=== PATIENT | male | born 1970 | race Caucasian/White ===

== ENCOUNTER 2022-12-02 13:25 | Observation (INO) | payer OTHER ==
[2022-12-02] MEDS ORDERED: DUONEB 0.5-3 MG/3 ml Neb IH ONE ×2 (13:43→14:28)
[2022-12-02 14:13] LABS: Hematocrit 28.4 % (42-50); Hemoglobin 8.9 g/dL (12.5-18.0); Mean Cell Volume 94.4 fL (78-100); Mean Corpuscular Hemoglobin 29.6 pg (26-32); Mean Corpuscular Hgb Concent. 31.3 g/dL (32-36); Mean Platelet Volume 9.8 fL (7.5-11.0); Platelet Count 241 x10^3/uL (150-450); Red Blood Count 3.01 x10^6/uL (4.1-5.6); Red Cell Distribution Width 17.7 % (11.5-14.0); White Blood Count 7.8 x10^3/uL (4.0-10.5)
--- NOTE | 2022-12-02 14:22 | XRAY ---
Indication: Cough and short of breath. Post Covid 19. Comparison: None Portable chest inflated and clear. Heart not enlarged. Bony thorax intact with minimal degenerative changes.
[2022-12-02 14:26] LABS: ALBUMIN 2.9 g/dL (3.5-5.0); ALKALINE PHOSPHATASE 119 U/L (38-126); ANION GAP 12.3 MEQ/L (5-15); BLOOD UREA NITROGEN 20 mg/dL (9-20); CHLORIDE 94 mmol/L (98-107); Calcium 7.9 mg/dL (8.4-10.2); Carbon Dioxide 25 mmol/L (22-30); EST GLOMERULAR FILTRATION RATE > 60.0 ML/MIN; Glucose 436 mg/dL (74-106); LIPASE 146 U/L (23-300); Potassium 4.6 mmol/L (3.5-5.1); SGOT/AST 20 U/L (17-59); SGPT/ALT 20 U/L (0-50); SODIUM 126 mmol/L (137-145); Total Protein 4.9 g/dL (6.3-8.2)
[2022-12-02] MEDS ORDERED: Sodium Chloride 0.9% 1000 ML 1,000 ML IV STA (14:28)
[2022-12-02 14:30] LABS: Appearance CLEAR (CLEAR); Bilirubin NEGATIVE (NEGATIVE); Dipstick done @ ? MAIN LAB; Glucose >=1000 mg/dL (NEGATIVE); Ketones NEGATIVE (NEGATIVE); Nitrite NEGATIVE (NEGATIVE); Protein,Urine Dip NEGATIVE (Negative); RBC NEGATIVE Ery/ul (0-5); Urobilinogen 0.2 mg/dL (0-1)
[2022-12-02 14:31] LABS: Urine Cultured Indicated? NO
[2022-12-02] MEDS ORDERED: Sodium Chloride 0.9% 1000 ML 1,000 ML ONE (14:34)
[2022-12-02] MEDS ORDERED: HUMULIN R IV ONE (14:40)
--- NOTE | 2022-12-02 14:57 | ERPHSYRPT ---
- History of Present Illness Time Seen by Provider: 12/02/22 13:42 Source: patient Exam Limitations: no limitations Patient Subjective Stated Complaint: Patient c/o fatigue, pain, cough, weakness. Patient is requesting to be placed in a mcfp/rehab center for therapy. Triage Nursing Assessment: Patient brought into the ED by ambulance. He is alert and oriented. SOB noted upon arrival, wearing 02 @ 3L per N/C. Patient has been utilizing oxygen at 3L for approx the past month at home. Patient has a forceful, productive cough with yellow sputum. Patient states he was diagnosed with COVID at [facility] approx 5 days ago. ABDULAZIZ PEREIRA. Physician History: 52-year-old male with history of CLL currently off of chemotherapy because of not doing well in general. Did have COVID-19 early last week and was treated wi PaxilOVOD and steroids at [place] has chronic productive cough for 6 months, chronic respiratory failure on 3 L oxygen presented with worsening cough with generalized weakness fatigue and tiredness. Patient reports he has no energy to do his routine daily house chores. No fever or chills reported. Patient wants to be placed in a mcfp to get some rehab. Patient has a blood sugar in upper 400s when EMS picked him up. Generalized chest soreness. Timing/Duration: week(s) (1), gradual onset, worse Cough Quality/Degree: moderate, productive cough, sputum Possible Cause: illness exposure Modifying Factors: Worsens With: coughing, exertion Associated Symptoms: chest pain/soreness, cough, muscle aches, nasal congestion, shortness of breath, sore throat, wheezing Allergies/Adverse Reactions: No Known Drug Allergies Allergy (Verified 12/02/22 13:34) Home Medications: Albuterol Sulfate [Albuterol Sulfate Hfa] 2 puff PO Q6H PRN PRN 12/02/22 [History] Albuterol/Ipratropium 3ml Neb* [DUONEB 0.5-3 MG/3 ml Neb] 1 vial NEB QID 12/02/22 [History] Budesonide/Formoterol Fumarate [Budesonide-Formoterol 80-4.5] 2 puff PO BID 12/02/22 [History] Diazepam [Valium] 1 tab PO BID 12/02/22 [History] Guaifenesin/Dextromethorphan [Guaifenesin-Dm 100-10 mg/5 ml] 5 ml PO QID 12/02/22 [History] dexAMETHasone [Dexamethasone] 6 mg PO BID 12/02/22 [History] Hx Tetanus, Diphtheria Vaccination/Date Given: Yes Hx Influenza Vaccination/Date Given: No Hx Pneumococcal Vaccination/Date Given: No Immunizations Up to Date: Yes Travel Risk - International Travel Have you traveled outside of the country in past 3 weeks: No - Coronavirus Screening Are you exhibiting any of the following symptoms?: Yes Symptoms: Fever, Cough: New Onset, Shortness of Breath, Headaches/Body Aches/Fatigue Close contact with a COVID-19 positive Pt in past 14-21 Days: No - Vaccine Status Have you recieved a Covid-19 vaccination: No - Review of Systems Constitutional: Chills, Fatigue, Weakness Eyes: No Symptoms Ears, Nose, & Throat: Nose Congestion, Throat Pain Respiratory: Cough, Dyspnea, Dyspnea on Exertion (WEINSTEIN), Wheezing Cardiac: No Symptoms Abdominal/Gastrointestinal: No Symptoms Genitourinary Symptoms: No Symptoms Musculoskeletal: Myalgias Skin: No Symptoms Neurological: No Symptoms Psychological: Anxiety, Depression Endocrine: No Symptoms Hematologic/Lymphatic: Anemia Immunological/Allergic: No Symptoms - Past Medical History Pertinent Past Medical History: Yes Respiratory History: Other GI Medical History: Hernia Psycho-Social History: Anxiety Other Medical History: CLL, COVID in Oct 2022, Stage 4 Lymphoma - Past Surgical History Past Surgical History: Yes Gastrointestinal: Hernia Repair Musculoskeletal: Other Other Surgical History: carpal tunnel surgery, right elbow - Social History Smoking Status: Former smoker Exposure to second hand smoke: No Drug Use: none Patient Lives Alone: No (Mom and sister) - Nursing Vital Signs Nursing Vital Signs: Initial Vital Signs Temperature 98.2 F 12/02/22 13:35 Pulse Rate 104 H 12/02/22 13:35 Respiratory Rate 26 H 12/02/22 13:35 Blood Pressure 142/98 12/02/22 13:35 O2 Sat by Pulse Oximetry 95 12/02/22 13:35 Pain Scale Pain Intensity 5 - Physical Exam General Appearance: no apparent distress, alert Eye Exam: PERRL/EOMI, eyes nml inspection Ears, Nose, Throat Exam: TMs normal, pharyngeal erythema Neck Exam: normal inspection, non-tender, supple, full range of motion Respiratory Exam: normal breath sounds, rhonchi, wheezing Cardiovascular Exam: regular rate/rhythm, normal heart sounds Gastrointestinal/Abdomen Exam: soft, normal bowel sounds, No tenderness Back Exam: normal inspection Extremity Exam: normal inspection, normal range of motion Neurologic Exam: alert, oriented x 3, cooperative, die forger II-XII nml as tested Skin Exam: normal color SpO2 Interpretation: O2 applied SpO2: 95 O2 Delivery: Nasal Cannula (3 L) - Course EKG Interpreted by Me: RATE (97), Sinus Rhythm, NORMAL AXIS, NORMAL INTERVALS, NORMAL QRS Ordered Tests: Medication Summary Generic Name Dose Route Start Last Admin Trade Name Freq PRN Reason Stop Dose Admin Acetaminophen 650 mg 12/02/22 16:58 Acetaminophen 325 Mg Tablet PO 01/01/23 16:57 Q4H PRN PRN PAIN AND/OR FEVER Hydrocodone Bitart/Acetaminophen 1 tab 12/02/22 19:59 12/05/22 08:08 Hydrocodone/Apap 5/325 1 Tab Tablet PO 12/07/22 19:58 1 tab Q4H PRN PRN Administration PAIN Albuterol Sulfate 2.5 mg 12/02/22 19:00 12/05/22 07:52 Albuterol Sulfate 2.5 Mg/3 Ml Neb 01/01/23 18:59 2.5 mg Q6HRT JONY Administration Albuterol Sulfate 2 puff 12/03/22 14:47 Albuterol Common Canister Inhaler 01/02/23 14:46 Q6H PRN PRN SHORTNESS OF BREATH Dexamethasone 6 mg 12/02/22 22:00 12/04/22 20:43 Dexamethasone 4 Mg Tablet PO 01/01/23 21:59 6 mg BID JONY Administration Diazepam 2.5 mg 12/03/22 22:00 12/04/22 20:44 Diazepam 5 Mg Tablet PO 01/01/23 21:59 2.5 mg BID JONY Administration Diphenhydramine/Hydrocorti/Nystatin 10 ml 12/03/22 17:00 12/04/22 20:45 Nystatin/Tcn/Pred/Diphenhydramin 240 Ml Bottle PO 01/02/23 16:59 10 ml QID JONY Administration Escitalopram Oxalate 10 mg 12/03/22 14:00 12/04/22 09:49 Escitalopram Oxalate 10 Mg Tablet PO 01/02/23 13:59 10 mg QAM JONY Administration Glimepiride 2 mg 12/04/22 14:00 12/04/22 13:54 Glimepiride 2 Mg Tablet PO 01/03/23 13:59 2 mg DAILY JONY Administration Guaifenesin/Dextromethorphan 5 ml 12/02/22 22:00 12/04/22 20:45 Guaifenesin/D-Methorphan Hb 118 Ml Syrup PO 01/01/23 21:59 5 ml QID JONY Administration Sodium Chloride 1,000 mls @ 100 mls/hr 12/02/22 16:58 12/04/22 21:51 Sodium Chloride 0.9% 1000 Ml IV 01/01/23 16:57 100 mls/hr .Q10H JONY Administration Levofloxacin/Dextrose 500 mg in 100 mls @ 100 mls/hr 12/03/22 10:00 12/04/22 09:49 Levofloxacin 500mg/100ml D5w IV 01/02/23 09:59 100 mls/hr Q24H10 JONY Administration Insulin Human Lispro 0 unit 12/02/22 16:58 12/05/22 08:08 Insulin Lispro 1 Unit SQ 01/01/23 16:57 3 unit UD PRN Administration HYPERGLYCEMIA Metformin HCl 500 mg 12/04/22 14:00 12/04/22 13:54 Metformin Hcl 500 Mg Tablet PO 01/03/23 13:59 500 mg DAILY JONY Administration Ondansetron HCl 4 mg 12/02/22 16:58 12/04/22 20:43 Ondansetron Hcl 4 Mg/2 Ml Vial IV 01/01/23 16:57 4 mg Q6H PRN PRN Administration NAUSEA/VOMITING Pantoprazole Sodium 40 mg 12/03/22 10:00 12/04/22 09:34 Pantoprazole 40 Mg Vial IV 01/02/23 09:59 40 mg Q24H10 JONY Administration Fluticasone/Salmeterol 2 puff 12/03/22 07:00 12/04/22 18:24 Fluticasone/Salmeterol 115/21 - 120 Puff Common Canister IH 01/02/23 06:59 2 puff BIDRT JONY Administration Discontinued Medications Generic Name Dose Route Start Last Admin Trade Name Freq PRN Reason Stop Dose Admin Albuterol/Ipratropium 3 ml 12/02/22 13:43 12/02/22 15:00 Ipratropium/Albuterol Sulfate 3 Ml Ampul.Neb 12/02/22 13:44 3 ml STAT ONE Administration Albuterol/Ipratropium Confirm 12/02/22 14:28 Ipratropium/Albuterol Sulfate 3 Ml Ampul.Neb Administered 12/02/22 14:29 Dose 3 ml IH .STK-MED ONE Albuterol/Ipratropium 3 ml 12/02/22 19:00 Ipratropium/Albuterol Sulfate 3 Ml Ampul.Neb 01/01/23 18:59 Q6HRT JONY Diazepam Confirm 12/02/22 20:17 Diazepam 5 Mg Tablet Administered 12/02/22 20:18 Dose 5 mg .ROUTE .STK-MED ONE Diazepam 2 mg 12/02/22 22:00 12/03/22 08:18 Diazepam 5 Mg Tablet PO 01/01/23 21:59 2 mg BID JONY Administration Glimepiride 2 mg 12/05/22 10:00 Glimepiride 2 Mg Tablet PO 01/04/23 09:59 BREAKFAST JONY Sodium Chloride 1,000 mls @ 999 mls/hr 12/02/22 14:28 12/02/22 15:51 Sodium Chloride 0.9% 1000 Ml IV 12/02/22 15:28 Infused .Q1H1M STA Infusion Sodium Chloride Confirm 12/02/22 14:34 Sodium Chloride 0.9% 1000 Ml Administered 12/02/22 14:35 Dose 1,000 mls @ ud .ROUTE .STK-MED ONE Levofloxacin/Dextrose 750 mg in 150 mls @ 100 mls/hr 12/02/22 15:30 12/02/22 15:54 Levofloxacin 750mg/150ml D5w IV 12/02/22 16:59 100 mls/hr STAT STA 100 mls/hr Administration Levofloxacin/Dextrose Confirm 12/02/22 15:53 Levofloxacin 750mg/150ml D5w Administered 12/02/22 15:54 Dose 750 mg in 150 mls @ ud IV .STK-MED ONE Insulin Human Regular 8 unit 12/02/22 14:40 12/02/22 15:23 Insulin Regular, Human 1 Unit IV 01/02/23 14:41 8 unit STAT ONE Administration Insulin Human Regular Confirm 12/02/22 15:22 Insulin Regular, Human 1 Unit Administered 12/02/22 15:23 Dose 8 unit .ROUTE .STK-MED ONE Metformin HCl 500 mg 12/05/22 10:00 Metformin Hcl 500 Mg Tablet PO 12/05/22 10:01 ONCE ONE Non-Formulary Medication 1 each 12/03/22 13:44 12/03/22 15:15 Pharmacy Dosing Request 12/03/22 13:45 1 each STAT ONE Administration Lab/Rad Data: Laboratory Result Diagrams 12/02/22 13:55 12/02/22 13:55 Laboratory Results 12/02/22 12/02/22 12/02/22 Range/Units 16:38 16:23 15:53 WBC (4.0-10.5) x10^3/uL RBC (4.1-5.6) x10^6/uL Hgb (12.5-18.0) g/dL Hct (42-50) % MCV (78-100) fL MCH (26-32) pg MCHC (32-36) g/dL RDW (11.5-14.0) % Plt Count (150-450) x10^3/uL MPV (7.5-11.0) fL Segmented Neutrophils (36.-66.) % Lymphocytes (Manual) (24-44) % Monocytes (Manual) (0.0-12.0) % Toxic Granulation Platelet Estimate (NORMAL) RBC Morphology Polychromasia Anisocytosis Microcytosis Sodium (137-145) mmol/L Potassium (3.5-5.1) mmol/L Chloride (98-107) mmol/L Carbon Dioxide (22-30) mmol/L Anion Gap (5-15) MEQ/L BUN (9-20) mg/dL Creatinine (0.66-1.25) mg/dL Estimated GFR ML/MIN Glucose (74-106) mg/dL POC Glucometer 275 H (74 to 106) mg/dL Lactic Acid 2.1 H (0.4-2.0) Calcium (8.4-10.2) mg/dL Magnesium (1.6-2.3) mg/dL Total Bilirubin (0.2-1.3) mg/dL AST (17-59) U/L ALT (0-50) U/L Alkaline Phosphatase (38-126) U/L Troponin I (0.000-0.034) ng/mL NT-Pro-B Natriuret Pep (0-900) pg/mL Serum Total Protein (6.3-8.2) g/dL Albumin (3.5-5.0) g/dL Lipase (23-300) U/L Urinalys Dipstick Clnc Urine Color (YELLOW) Urine Appearance (CLEAR) Urine pH (5-6) Ur Specific [place] (1.005-1.025) POC Urine Protein Conf (Negative) Urine Ketones (NEGATIVE) Urine Nitrite (NEGATIVE) Urine Bilirubin (NEGATIVE) Urine Urobilinogen (0-1) mg/dL Urine Leukocytes (NEGATIVE) Urine WBC (Auto) (0-5) /HPF Urine RBC (Auto) (0-2) /HPF U Epithel Cells (Auto) (FEW) /HPF Urine Bacteria (Auto) (NEGATIVE) /HPF Urine RBC (0-5) [place] Ur Culture Indicated? Urine Glucose (NEGATIVE) mg/dL SARS-CoV-2 Ag (Rapid) NEGATIVE (NEGATIVE) 12/02/22 12/02/22 12/02/22 Range/Units 15:17 14:13 13:55 WBC (4.0-10.5) x10^3/uL RBC (4.1-5.6) x10^6/uL Hgb (12.5-18.0) g/dL Hct (42-50) % MCV (78-100) fL MCH (26-32) pg MCHC (32-36) g/dL RDW (11.5-14.0) % Plt Count (150-450) x10^3/uL MPV (7.5-11.0) fL Segmented Neutrophils (36.-66.) % Lymphocytes (Manual) (24-44) % Monocytes (Manual) (0.0-12.0) % Toxic Granulation Platelet Estimate (NORMAL) RBC Morphology Polychromasia Anisocytosis Microcytosis Sodium (137-145) mmol/L Potassium (3.5-5.1) mmol/L Chloride (98-107) mmol/L Carbon Dioxide (22-30) mmol/L Anion Gap (5-15) MEQ/L BUN (9-20) mg/dL Creatinine (0.66-1.25) mg/dL Estimated GFR ML/MIN Glucose (74-106) mg/dL POC Glucometer 378 H (74 to 106) mg/dL Lactic Acid (0.4-2.0) Calcium (8.4-10.2) mg/dL Magnesium 2.1 (1.6-2.3) mg/dL Total Bilirubin (0.2-1.3) mg/dL AST (17-59) U/L ALT (0-50) U/L Alkaline Phosphatase (38-126) U/L Troponin I (0.000-0.034) ng/mL NT-Pro-B Natriuret Pep 154 (0-900) pg/mL Serum Total Protein (6.3-8.2) g/dL Albumin (3.5-5.0) g/dL Lipase (23-300) U/L Urinalys Dipstick Clnc MAIN LAB Urine Color YELLOW (YELLOW) Urine Appearance CLEAR (CLEAR) Urine pH 6.0 (5-6) Ur Specific [place] 1.010 (1.005-1.025) POC Urine Protein Conf NEGATIVE (Negative) Urine Ketones NEGATIVE (NEGATIVE) Urine Nitrite NEGATIVE (NEGATIVE) Urine Bilirubin NEGATIVE (NEGATIVE) Urine Urobilinogen 0.2 (0-1) mg/dL Urine Leukocytes NEGATIVE (NEGATIVE) Urine WBC (Auto) NONE (0-5) /HPF Urine RBC (Auto) NONE (0-2) /HPF U Epithel Cells (Auto) NONE (FEW) /HPF Urine Bacteria (Auto) NONE (NEGATIVE) /HPF Urine RBC NEGATIVE (0-5) [place] Ur Culture Indicated? NO Urine Glucose >=1000 A (NEGATIVE) mg/dL SARS-CoV-2 Ag (Rapid) (NEGATIVE) 12/02/22 12/02/22 12/02/22 Range/Units 13:55 13:55 13:55 WBC 7.8 (4.0-10.5) x10^3/uL RBC 3.01 L (4.1-5.6) x10^6/uL Hgb 8.9 L (12.5-18.0) g/dL Hct 28.4 L (42-50) % MCV 94.4 (78-100) fL MCH 29.6 (26-32) pg MCHC 31.3 L (32-36) g/dL RDW 17.7 H (11.5-14.0) % Plt Count 241 (150-450) x10^3/uL MPV 9.8 (7.5-11.0) fL Segmented Neutrophils 37 (36.-66.) % Lymphocytes (Manual) 62 H (24-44) % Monocytes (Manual) 1 (0.0-12.0) % Toxic Granulation 1+ Platelet Estimate NORMAL (NORMAL) RBC Morphology ABNORMAL Polychromasia RARE Anisocytosis 1+ Microcytosis 1+ Sodium 126 L (137-145) mmol/L Potassium 4.6 (3.5-5.1) mmol/L Chloride 94 L (98-107) mmol/L Carbon Dioxide 25 (22-30) mmol/L Anion Gap 12.3 (5-15) MEQ/L BUN 20 (9-20) mg/dL Creatinine 0.60 L (0.66-1.25) mg/dL Estimated GFR > 60.0 ML/MIN Glucose 436 H (74-106) mg/dL POC Glucometer (74 to 106) mg/dL Lactic Acid (0.4-2.0) Calcium 7.9 L (8.4-10.2) mg/dL Magnesium (1.6-2.3) mg/dL Total Bilirubin 0.40 (0.2-1.3) mg/dL AST 20 (17-59) U/L ALT 20 (0-50) U/L Alkaline Phosphatase 119 (38-126) U/L Troponin I < 0.012 (0.000-0.034) ng/mL NT-Pro-B Natriuret Pep (0-900) pg/mL Serum Total Protein 4.9 L (6.3-8.2) g/dL Albumin 2.9 L (3.5-5.0) g/dL Lipase 146 (23-300) U/L Urinalys Dipstick Clnc Urine Color (YELLOW) Urine Appearance (CLEAR) Urine pH (5-6) Ur Specific [place] (1.005-1.025) POC Urine Protein Conf (Negative) Urine Ketones (NEGATIVE) Urine Nitrite (NEGATIVE) Urine Bilirubin (NEGATIVE) Urine Urobilinogen (0-1) mg/dL Urine Leukocytes (NEGATIVE) Urine WBC (Auto) (0-5) /HPF Urine RBC (Auto) (0-2) /HPF U Epithel Cells (Auto) (FEW) /HPF Urine Bacteria (Auto) (NEGATIVE) /HPF Urine RBC (0-5) [place] Ur Culture Indicated? Urine Glucose (NEGATIVE) mg/dL SARS-CoV-2 Ag (Rapid) (NEGATIVE) 12/02/22 Range/Units 13:42 WBC (4.0-10.5) x10^3/uL RBC (4.1-5.6) x10^6/uL Hgb (12.5-18.0) g/dL Hct (42-50) % MCV (78-100) fL MCH (26-32) pg MCHC (32-36) g/dL RDW (11.5-14.0) % Plt Count (150-450) x10^3/uL MPV (7.5-11.0) fL Segmented Neutrophils (36.-66.) % Lymphocytes (Manual) (24-44) % Monocytes (Manual) (0.0-12.0) % Toxic Granulation Platelet Estimate (NORMAL) RBC Morphology Polychromasia Anisocytosis Microcytosis Sodium (137-145) mmol/L Potassium (3.5-5.1) mmol/L Chloride (98-107) mmol/L Carbon Dioxide (22-30) mmol/L Anion Gap (5-15) MEQ/L BUN (9-20) mg/dL Creatinine (0.66-1.25) mg/dL Estimated GFR ML/MIN Glucose (74-106) mg/dL POC Glucometer (74 to 106) mg/dL Lactic Acid 4.0 H (0.4-2.0) Calcium (8.4-10.2) mg/dL Magnesium (1.6-2.3) mg/dL Total Bilirubin (0.2-1.3) mg/dL AST (17-59) U/L ALT (0-50) U/L Alkaline Phosphatase (38-126) U/L Troponin I (0.000-0.034) ng/mL NT-Pro-B Natriuret Pep (0-900) pg/mL Serum Total Protein (6.3-8.2) g/dL Albumin (3.5-5.0) g/dL Lipase (23-300) U/L Urinalys Dipstick Clnc Urine Color (YELLOW) Urine Appearance (CLEAR) Urine pH (5-6) Ur Specific [place] (1.005-1.025) POC Urine Protein Conf (Negative) Urine Ketones (NEGATIVE) Urine Nitrite (NEGATIVE) Urine Bilirubin (NEGATIVE) Urine Urobilinogen (0-1) mg/dL Urine Leukocytes (NEGATIVE) Urine WBC (Auto) (0-5) /HPF Urine RBC (Auto) (0-2) /HPF U Epithel Cells (Auto) (FEW) /HPF Urine Bacteria (Auto) (NEGATIVE) /HPF Urine RBC (0-5) [place] Ur Culture Indicated? Urine Glucose (NEGATIVE) mg/dL SARS-CoV-2 Ag (Rapid) (NEGATIVE) - Progress Progress: improved Air Movement: good Progress Note: 12/02/22 15:36 52-year-old with CLL currently off of his chemotherapy because of recent sickness and also had recent COVID-19 finished course of oral antiviral is evaluated for worsening cough and generalized weakness. Patient has shortness of breath. His baseline unknowns on 3 L oxygen with sats around mid to upper 90s and not in any distress. Patient is afebrile. Given breathing treatment, chest x-ray negative for any acute cardiopulmonary findings. Has normal white count, has hemoglobin of 8.9 which according to patient has chronic anemia and does have history of transfusions in the past. Has normal troponin and EKG no acute ischemic changes. Chemistry shows blood sugar of 436 with normal bicarb. Patient has no history of diabetes mellitus and is on steroids and I believe this is secondary to steroid induced and could be new onset diabetes mellitus. I will order A1c for further evaluation. He is given 8 units of IV insulin after fluid bolus. Patient has a lactate of 4.0 without any obvious focus of infection and sodium of 126 which seems to be pseudohyponatremia because of elevated glucose. He is given a dose of Levaquin because patient has CLL. Discussed with patient about transfer to [facility] and he does not want to go there at all. According to patient his transformation specialist is not plan keli on starting him on any chemotherapy back until he gets physically better. He wants to be admitted in here. I have discussed with Dr. Lee, reviewed history, work-up and patient is being admitted. Blood cultures are obtained and she will follow the results. Blood Culture(s) Obtained: Yes Antibiotics given: Yes Discussed with Dr.: Aldo Will see patient in: hospital (observation) Counseled pt/family regarding: lab results, diagnosis, need for follow-up, rad results - Departure Departure Disposition: Observation Clinical Impression: Generalized weakness, Post-COVID chronic fatigue, Hyperglycemia, Lactic acidosis, CLL (chronic lymphocytic leukemia) Condition: Stable Critical Care Time: No
[2022-12-02 14:59] LABS: MAGNESIUM 2.1 mg/dL (1.6-2.3)
[2022-12-02] MEDS ORDERED: HUMULIN R ONE (15:22)
[2022-12-02] MEDS ORDERED: LEVOFLOXACIN 750MG/150ML D5W 750 MG/150 ML BAG IV STA (15:30)
[2022-12-02 15:43] LABS: Lymphocytes 62 % (24-44); Monocyte 1 % (0.0-12.0); Neutrophils 37 % (36.-66.); Total Cells Counted 100
[2022-12-02 15:44] LABS: ANISOCYTOSIS 1+; Microcytosis 1+; Platelet Estimate NORMAL (NORMAL); Polychromasia RARE; Toxic Granulation 1+
[2022-12-02] MEDS ORDERED: LEVOFLOXACIN 750MG/150ML D5W 750 MG/150 ML BAG IV ONE (15:53)
[2022-12-02] MEDS ORDERED: Zofran 4 MG/2 ML VIAL IV PRN (16:58)
[2022-12-02] MEDS ORDERED: TYLENOL 325 MG PO PRN (16:58)
[2022-12-02] MEDS: Sodium Chloride 0.9% 1000 ML 1,000 ML IV SCH (17:52)
[2022-12-02] MEDS: PROVENTIL 2.5 MG/3 ML NEB IH SCH (18:32)
[2022-12-02] MEDS ORDERED: DUONEB 0.5-3 MG/3 ml Neb IH SCH (19:00)
[2022-12-02] MEDS ORDERED: Valium 5 MG ONE (20:17)
[2022-12-02] MEDS: Robitussin-Dm Syrup PO SCH (20:48)
[2022-12-02] MEDS: Valium 5 MG PO SCH (20:48)
[2022-12-02] MEDS: Decadron 4 MG PO SCH (20:49)
[2022-12-02] MEDS: NORCO 5/325 MG PO PRN (20:49)
[2022-12-02] MEDS: HUMALOG SQ PRN (21:42)
[2022-12-03] MEDS: PROVENTIL 2.5 MG/3 ML NEB IH SCH ×4 (00:16→19:10)
[2022-12-03] MEDS: NORCO 5/325 MG PO PRN ×5 (02:40→21:14)
[2022-12-03] MEDS: Sodium Chloride 0.9% 1000 ML 1,000 ML IV SCH ×3 (03:24→23:52)
[2022-12-03 05:08] LABS: Hematocrit 29.7 % (42-50); Hemoglobin 9.1 g/dL (12.5-18.0); Mean Cell Volume 94.3 fL (78-100); Mean Corpuscular Hemoglobin 28.9 pg (26-32); Mean Corpuscular Hgb Concent. 30.6 g/dL (32-36); Mean Platelet Volume 9.6 fL (7.5-11.0); Platelet Count 214 x10^3/uL (150-450); Red Blood Count 3.15 x10^6/uL (4.1-5.6); Red Cell Distribution Width 17.7 % (11.5-14.0); White Blood Count 6.4 x10^3/uL (4.0-10.5)
[2022-12-03 05:38] LABS: ALKALINE PHOSPHATASE 103 U/L (38-126); ANION GAP 7.6 MEQ/L (5-15); BLOOD UREA NITROGEN 18 mg/dL (9-20); CHLORIDE 95 mmol/L (98-107); Calcium 8.2 mg/dL (8.4-10.2); Carbon Dioxide 30 mmol/L (22-30); Creatinine 1 0.62 mg/dL (0.66-1.25); EST GLOMERULAR FILTRATION RATE > 60.0 ML/MIN; Glucose 342 mg/dL (74-106); Potassium 4.8 mmol/L (3.5-5.1); SGOT/AST 18 U/L (17-59); SGPT/ALT 18 U/L (0-50); SODIUM 128 mmol/L (137-145); Total Protein 5.1 g/dL (6.3-8.2)
[2022-12-03 07:46] LABS: Lymphocytes 52 % (24-44); Monocyte 6 % (0.0-12.0); Neutrophils 42 % (36.-66.); Total Cells Counted 100
[2022-12-03 07:47] LABS: Platelet Estimate NORMAL (NORMAL)
[2022-12-03] MEDS: Advair Hfa 115/21 Common canister IH SCH ×2 (07:48→19:10)
[2022-12-03] MEDS: Decadron 4 MG PO SCH ×2 (08:17→21:13)
[2022-12-03] MEDS: HUMALOG SQ PRN ×4 (08:17→22:00)
[2022-12-03] MEDS: PROTONIX 40 MG IV IV SCH (08:17)
[2022-12-03] MEDS: Valium 5 MG PO SCH ×2 (08:18→21:13)
[2022-12-03] MEDS: Robitussin-Dm Syrup PO SCH ×4 (08:23→21:14)
[2022-12-03] MEDS: Levofloxacin 500MG/100ML D5W 500 MG/100 ML BAG IV SCH (08:23)
--- NOTE | 2022-12-03 12:54 | PCM.HP ---
History of Present Illness - Chief Complaint Chief Complaint: Post COVID generalized weakness History of Present Illness: n History: Mr Colmenares is a 52-year-old male with history of CLL currently off of chemotherapy because of not doing well in general. Did have COVID-19 early last week and was treated with Paklovid and steroids at [place] has chronic productive cough for 6 months, chronic respiratory failure on 3 L oxygen presented with worsening cough with generalized weakness fatigue and tiredness. Patient reports he has no energy to do his routine daily house chores. No fever or chills reported. Patient wants to be placed in a alf to get some rehab. Patient has a blood sugar in upper 400s when EMS picked him up. Generalized chest soreness. ER evaluation - CXR negative for any acute cardiopulmonary findings. normal white count, hemoglobin of 8.9 which according to patient has chronic anemia and does have history of transfusions in the past. Has normal troponin and EKG no acute ischemic changes. Hyperglycemia - blood sugar of 436 with normal bicarb. Patient has no history of diabetes mellitus and is on steroids / steroid induced and could be new onset diabetes mellitus. A1c pending . 8 units of IV insulin after fluid bolus. Patient has a lactate of 4.0 without any obvious focus of infection and sodium of 126 which seems to be pseudohyponatremia because of elevated glucose. He is given a dose of Levaquin because patient has CLL. 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 Blood cultures are obtained In ER prior to starting Levaquin. Patient is admitted to [facility]. B - Review of Systems Constitutional: Fever, Chills, Fatigue, Malaise, Weakness Eyes: No Symptoms Ears, Nose, & Throat: Nose Congestion, Sinus Drainage, Throat Pain Respiratory: Cough, Wheezing Cardiac: No Symptoms Abdominal/Gastrointestinal: No Symptoms Genitourinary Symptoms: No Symptoms Musculoskeletal: Arthralgias Skin: No Symptoms Neurological: No Symptoms Psychological: Anxiety Endocrine: Polyuria Hematologic/Lymphatic: No Symptoms Medications & Allergies Home Medications: Home Medication List Albuterol Sulfate [Albuterol Sulfate Hfa] 2 puff PO Q6H PRN PRN 12/02/22 [Hist ory Confirmed 12/02/22] Albuterol/Ipratropium 3ml Neb* [DUONEB 0.5-3 MG/3 ml Neb] 1 vial NEB QID 12/02/22 [History Confirmed 12/02/22] Budesonide/Formoterol Fumarate [Budesonide-Formoterol 80-4.5] 2 puff PO BID 12/02/22 [History Confirmed 12/02/22] Diazepam [Valium] 1 tab PO BID 12/02/22 [History Confirmed 12/02/22] dexAMETHasone [Dexamethasone] 6 mg PO BID 12/02/22 [History Confirmed 12/02/22] Escitalopram Oxalate [Lexapro] 10 mg PO QAM #30 tablet 12/05/22 [Rx] Fluconazole 100 mg [Diflucan 100 MG] 200 mg PO DAILY #1 tablet 12/05/22 [Rx] Glimepiride 2 mg [Amaryl 2 MG] 2 mg PO DAILY #30 tablet 12/05/22 [Rx] Metformin HCl 500 mg [Glucophage 500 MG] 500 mg PO BIDWM #30 tablet 12/05/22 [Rx] Allergies/Adverse Reactions: Allergies Allergy/AdvReac Type Severity Reaction Status Date / Time No Known Drug Allergies Allergy Verified 12/02/22 13:34 - Past Medical History Past Medical History: Yes Neurological History: No Pertinent History ENT History: No Pertinent History Cardiac History: No Pertinent History Respiratory History: Other Endocrine Medical History: No Pertinent History Musculoskelatal History: No Pertinent History GI Medical History: Hernia History: No Pertinent History Pyscho-Social History: Anxiety Male Reproductive Disorders: No Pertinent History Comment: CLL, COVID in Oct 2022, Stage 4 Lymphoma - Past Surgical History Past Surgical History: Yes Neuro Surgical History: No Pertinent History Cardiac History: No Pertinent History Respiratory Surgery: No Pertinent History GI Surgical History: Hernia Repair Musculskeletal Surgical Hx: Other Other Surgical History: carpal tunnel surgery, right elbow - Social History Smoking Status: Former smoker Exposure to second hand smoke: No Alcohol: None Drug Use: none - Physical Exam Vital Signs: Vital Signs - 24 hr Temp Pulse Resp BP Pulse Ox 12/03/22 11:44 98.0 F 109 H 16 124/66 92 L 12/03/22 08:37 95 12/03/22 07:51 98.3 F 97 H 16 132/72 89 L 12/03/22 07:49 107 H 18 92 L 12/03/22 04:00 97.6 F 104 H 18 133/85 94 L 12/03/22 00:16 100 H 24 92 L 12/02/22 22:48 98.7 F 98 H 16 129/73 95 12/02/22 19:42 97.7 F 113 H 22 127/69 91 L 12/02/22 18:33 105 H 24 99 12/02/22 17:31 98 H 16 96 12/02/22 17:05 98.2 F 100 H 16 132/74 95 12/02/22 16:58 98.2 F 100 H 16 132/74 95 12/02/22 15:42 95 12/02/22 15:30 103 H 18 127/84 95 12/02/22 15:01 92 H 18 96 12/02/22 14:30 101 H 21 126/84 94 L 12/02/22 13:35 98.2 F 104 H 26 H 142/98 95 General Appearance: no apparent distress, anxiety Neurologic Exam: alert, oriented x 3, cooperative, 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 tested, nml station & gait Eye Exam: eyes nml inspection Ears, Nose, Throat Exam: moist mucous membranes, pharyngeal erythema Neck Exam: normal inspection Respiratory Exam: rhonchi (scattered), wheezing (eew scattered) Cardiovascular Exam: tachycardia (100 regular) Gastrointestinal/Abdomen Exam: soft (nontender) Rectal Exam: not done Back Exam: normal inspection Extremity Exam: normal inspection Skin Exam: warm, dry, pale Results - Labs Lab/Micro Results: Lab Results-Last 24 Hours 12/02/22 12/02/22 12/02/22 Range/Units 13:42 13:55 13:55 WBC 7.8 (4.0-10.5) x10^3/uL RBC 3.01 L (4.1-5.6) x10^6/uL Hgb 8.9 L (12.5-18.0) g/dL Hct 28.4 L (42-50) % MCV 94.4 (78-100) fL MCH 29.6 (26-32) pg MCHC 31.3 L (32-36) g/dL RDW 17.7 H (11.5-14.0) % Plt Count 241 (150-450) x10^3/uL MPV 9.8 (7.5-11.0) fL Segmented Neutrophils 37 (36.-66.) % Lymphocytes (Manual) 62 H (24-44) % Monocytes (Manual) 1 (0.0-12.0) % Toxic Granulation 1+ Platelet Estimate NORMAL (NORMAL) RBC Morphology ABNORMAL Polychromasia RARE Anisocytosis 1+ Microcytosis 1+ Sodium 126 L (137-145) mmol/L Potassium 4.6 (3.5-5.1) mmol/L Chloride 94 L (98-107) mmol/L Carbon Dioxide 25 (22-30) mmol/L Anion Gap 12.3 (5-15) MEQ/L BUN 20 (9-20) mg/dL Creatinine 0.60 L (0.66-1.25) mg/dL Estimated GFR > 60.0 ML/MIN Glucose 436 H (74-106) mg/dL POC Glucometer (74 to 106) mg/dL Hemoglobin A1c (4.5-6.0) % Lactic Acid 4.0 H (0.4-2.0) Calcium 7.9 L (8.4-10.2) mg/dL Magnesium (1.6-2.3) mg/dL Total Bilirubin 0.40 (0.2-1.3) mg/dL AST 20 (17-59) U/L ALT 20 (0-50) U/L Alkaline Phosphatase 119 (38-126) U/L Troponin I (0.000-0.034) ng/mL NT-Pro-B Natriuret Pep (0-900) pg/mL Serum Total Protein 4.9 L (6.3-8.2) g/dL Albumin 2.9 L (3.5-5.0) g/dL Lipase 146 (23-300) U/L Urinalys Dipstick Clnc Urine Color (YELLOW) Urine Appearance (CLEAR) Urine pH (5-6) Ur Specific Gilson (1.005-1.025) POC Urine Protein Conf (Negative) Urine Ketones (NEGATIVE) Urine Nitrite (NEGATIVE) Urine Bilirubin (NEGATIVE) Urine Urobilinogen (0-1) mg/dL Urine Leukocytes (NEGATIVE) Urine WBC (Auto) (0-5) /HPF Urine RBC (Auto) (0-2) /HPF U Epithel Cells (Auto) (FEW) /HPF Urine Bacteria (Auto) (NEGATIVE) /HPF Urine RBC (0-5) Los/ul Ur Culture Indicated? Urine Glucose (NEGATIVE) mg/dL SARS-CoV-2 Ag (Rapid) (NEGATIVE) 12/02/22 12/02/22 12/02/22 Range/Units 13:55 13:55 14:13 WBC (4.0-10.5) x10^3/uL RBC (4.1-5.6) x10^6/uL Hgb (12.5-18.0) g/dL Hct (42-50) % MCV (78-100) fL MCH (26-32) pg MCHC (32-36) g/dL RDW (11.5-14.0) % Plt Count (150-450) x10^3/uL MPV (7.5-11.0) fL Segmented Neutrophils (36.-66.) % Lymphocytes (Manual) (24-44) % Monocytes (Manual) (0.0-12.0) % Toxic Granulation Platelet Estimate (NORMAL) RBC Morphology Polychromasia Anisocytosis Microcytosis Sodium (137-145) mmol/L Potassium (3.5-5.1) mmol/L Chloride (98-107) mmol/L Carbon Dioxide (22-30) mmol/L Anion Gap (5-15) MEQ/L BUN (9-20) mg/dL Creatinine (0.66-1.25) mg/dL Estimated GFR ML/MIN Glucose (74-106) mg/dL POC Glucometer (74 to 106) mg/dL Hemoglobin A1c (4.5-6.0) % Lactic Acid (0.4-2.0) Calcium (8.4-10.2) mg/dL Magnesium 2.1 (1.6-2.3) mg/dL Total Bilirubin (0.2-1.3) mg/dL AST (17-59) U/L ALT (0-50) U/L Alkaline Phosphatase (38-126) U/L Troponin I < 0.012 (0.000-0.034) ng/mL NT-Pro-B Natriuret Pep 154 (0-900) pg/mL Serum Total Protein (6.3-8.2) g/dL Albumin (3.5-5.0) g/dL Lipase (23-300) U/L Urinalys Dipstick Clnc MAIN LAB Urine Color YELLOW (YELLOW) Urine Appearance CLEAR (CLEAR) Urine pH 6.0 (5-6) Ur Specific Gilson 1.010 (1.005-1.025) POC Urine Protein Conf NEGATIVE (Negative) Urine Ketones NEGATIVE (NEGATIVE) Urine Nitrite NEGATIVE (NEGATIVE) Urine Bilirubin NEGATIVE (NEGATIVE) Urine Urobilinogen 0.2 (0-1) mg/dL Urine Leukocytes NEGATIVE (NEGATIVE) Urine WBC (Auto) NONE (0-5) /HPF Urine RBC (Auto) NONE (0-2) /HPF U Epithel Cells (Auto) NONE (FEW) /HPF Urine Bacteria (Auto) NONE (NEGATIVE) /HPF Urine RBC NEGATIVE (0-5) Los/ul Ur Culture Indicated? NO Urine Glucose >=1000 A (NEGATIVE) mg/dL SARS-CoV-2 Ag (Rapid) (NEGATIVE) 12/02/22 12/02/22 12/02/22 Range/Units 15:17 15:53 16:23 WBC (4.0-10.5) x10^3/uL RBC (4.1-5.6) x10^6/uL Hgb (12.5-18.0) g/dL Hct (42-50) % MCV (78-100) fL MCH (26-32) pg MCHC (32-36) g/dL RDW (11.5-14.0) % Plt Count (150-450) x10^3/uL MPV (7.5-11.0) fL Segmented Neutrophils (36.-66.) % Lymphocytes (Manual) (24-44) % Monocytes (Manual) (0.0-12.0) % Toxic Granulation Platelet Estimate (NORMAL) RBC Morphology Polychromasia Anisocytosis Microcytosis Sodium (137-145) mmol/L Potassium (3.5-5.1) mmol/L Chloride (98-107) mmol/L Carbon Dioxide (22-30) mmol/L Anion Gap (5-15) MEQ/L BUN (9-20) mg/dL Creatinine (0.66-1.25) mg/dL Estimated GFR ML/MIN Glucose (74-106) mg/dL POC Glucometer 378 H (74 to 106) mg/dL Hemoglobin A1c (4.5-6.0) % Lactic Acid 2.1 H (0.4-2.0) Calcium (8.4-10.2) mg/dL Magnesium (1.6-2.3) mg/dL Total Bilirubin (0.2-1.3) mg/dL AST (17-59) U/L ALT (0-50) U/L Alkaline Phosphatase (38-126) U/L Troponin I (0.000-0.034) ng/mL NT-Pro-B Natriuret Pep (0-900) pg/mL Serum Total Protein (6.3-8.2) g/dL Albumin (3.5-5.0) g/dL Lipase (23-300) U/L Urinalys Dipstick Clnc Urine Color (YELLOW) Urine Appearance (CLEAR) Urine pH (5-6) Ur Specific Gilson (1.005-1.025) POC Urine Protein Conf (Negative) Urine Ketones (NEGATIVE) Urine Nitrite (NEGATIVE) Urine Bilirubin (NEGATIVE) Urine Urobilinogen (0-1) mg/dL Urine Leukocytes (NEGATIVE) Urine WBC (Auto) (0-5) /HPF Urine RBC (Auto) (0-2) /HPF U Epithel Cells (Auto) (FEW) /HPF Urine Bacteria (Auto) (NEGATIVE) /HPF Urine RBC (0-5) Los/ul Ur Culture Indicated? Urine Glucose (NEGATIVE) mg/dL SARS-CoV-2 Ag (Rapid) NEGATIVE (NEGATIVE) 12/02/22 12/02/22 12/02/22 Range/Units 16:38 17:55 21:34 WBC (4.0-10.5) x10^3/uL RBC (4.1-5.6) x10^6/uL Hgb (12.5-18.0) g/dL Hct (42-50) % MCV (78-100) fL MCH (26-32) pg MCHC (32-36) g/dL RDW (11.5-14.0) % Plt Count (150-450) x10^3/uL MPV (7.5-11.0) fL Segmented Neutrophils (36.-66.) % Lymphocytes (Manual) (24-44) % Monocytes (Manual) (0.0-12.0) % Toxic Granulation Platelet Estimate (NORMAL) RBC Morphology Polychromasia Anisocytosis Microcytosis Sodium (137-145) mmol/L Potassium (3.5-5.1) mmol/L Chloride (98-107) mmol/L Carbon Dioxide (22-30) mmol/L Anion Gap (5-15) MEQ/L BUN (9-20) mg/dL Creatinine (0.66-1.25) mg/dL Estimated GFR ML/MIN Glucose (74-106) mg/dL POC Glucometer 275 H 350 H (74 to 106) mg/dL Hemoglobin A1c (4.5-6.0) % Lactic Acid (0.4-2.0) Calcium (8.4-10.2) mg/dL Magnesium (1.6-2.3) mg/dL Total Bilirubin (0.2-1.3) mg/dL AST (17-59) U/L ALT (0-50) U/L Alkaline Phosphatase (38-126) U/L Troponin I < 0.012 (0.000-0.034) ng/mL NT-Pro-B Natriuret Pep (0-900) pg/mL Serum Total Protein (6.3-8.2) g/dL Albumin (3.5-5.0) g/dL Lipase (23-300) U/L Urinalys Dipstick Clnc Urine Color (YELLOW) Urine Appearance (CLEAR) Urine pH (5-6) Ur Specific Gilson (1.005-1.025) POC Urine Protein Conf (Negative) Urine Ketones (NEGATIVE) Urine Nitrite (NEGATIVE) Urine Bilirubin (NEGATIVE) Urine Urobilinogen (0-1) mg/dL Urine Leukocytes (NEGATIVE) Urine WBC (Auto) (0-5) /HPF Urine RBC (Auto) (0-2) /HPF U Epithel Cells (Auto) (FEW) /HPF Urine Bacteria (Auto) (NEGATIVE) /HPF Urine RBC (0-5) Los/ul Ur Culture Indicated? Urine Glucose (NEGATIVE) mg/dL SARS-CoV-2 Ag (Rapid) (NEGATIVE) 12/02/22 12/03/22 12/03/22 Range/Units 21:45 04:12 04:12 WBC 6.4 (4.0-10.5) x10^3/uL RBC 3.15 L (4.1-5.6) x10^6/uL Hgb 9.1 L (12.5-18.0) g/dL Hct 29.7 L (42-50) % MCV 94.3 (78-100) fL MCH 28.9 (26-32) pg MCHC 30.6 L (32-36) g/dL RDW 17.7 H (11.5-14.0) % Plt Count 214 (150-450) x10^3/uL MPV 9.6 (7.5-11.0) fL Segmented Neutrophils 42 (36.-66.) % Lymphocytes (Manual) 52 H (24-44) % Monocytes (Manual) 6 (0.0-12.0) % Toxic Granulation Platelet Estimate NORMAL (NORMAL) RBC Morphology NORMAL Polychromasia Anisocytosis Microcytosis Sodium 128 L (137-145) mmol/L Potassium 4.8 (3.5-5.1) mmol/L Chloride 95 L (98-107) mmol/L Carbon Dioxide 30 (22-30) mmol/L Anion Gap 7.6 (5-15) MEQ/L BUN 18 (9-20) mg/dL Creatinine 0.62 L (0.66-1.25) mg/dL Estimated GFR > 60.0 ML/MIN Glucose 342 H (74-106) mg/dL POC Glucometer (74 to 106) mg/dL Hemoglobin A1c (4.5-6.0) % Lactic Acid (0.4-2.0) Calcium 8.2 L (8.4-10.2) mg/dL Magnesium (1.6-2.3) mg/dL Total Bilirubin 0.40 (0.2-1.3) mg/dL AST 18 (17-59) U/L ALT 18 (0-50) U/L Alkaline Phosphatase 103 (38-126) U/L Troponin I < 0.012 (0.000-0.034) ng/mL NT-Pro-B Natriuret Pep (0-900) pg/mL Serum Total Protein 5.1 L (6.3-8.2) g/dL Albumin 3.0 L (3.5-5.0) g/dL Lipase (23-300) U/L Urinalys Dipstick Clnc Urine Color (YELLOW) Urine Appearance (CLEAR) Urine pH (5-6) Ur Specific Gilson (1.005-1.025) POC Urine Protein Conf (Negative) Urine Ketones (NEGATIVE) Urine Nitrite (NEGATIVE) Urine Bilirubin (NEGATIVE) Urine Urobilinogen (0-1) mg/dL Urine Leukocytes (NEGATIVE) Urine WBC (Auto) (0-5) /HPF Urine RBC (Auto) (0-2) /HPF U Epithel Cells (Auto) (FEW) /HPF Urine Bacteria (Auto) (NEGATIVE) /HPF Urine RBC (0-5) Los/ul Ur Culture Indicated? Urine Glucose (NEGATIVE) mg/dL SARS-CoV-2 Ag (Rapid) (NEGATIVE) 12/03/22 12/03/22 12/03/22 Range/Units 05:20 07:43 11:18 WBC (4.0-10.5) x10^3/uL RBC (4.1-5.6) x10^6/uL Hgb (12.5-18.0) g/dL Hct (42-50) % MCV (78-100) fL MCH (26-32) pg MCHC (32-36) g/dL RDW (11.5-14.0) % Plt Count (150-450) x10^3/uL MPV (7.5-11.0) fL Segmented Neutrophils (36.-66.) % Lymphocytes (Manual) (24-44) % Monocytes (Manual) (0.0-12.0) % Toxic Granulation Platelet Estimate (NORMAL) RBC Morphology Polychromasia Anisocytosis Microcytosis Sodium (137-145) mmol/L Potassium (3.5-5.1) mmol/L Chloride (98-107) mmol/L Carbon Dioxide (22-30) mmol/L Anion Gap (5-15) MEQ/L BUN (9-20) mg/dL Creatinine (0.66-1.25) mg/dL Estimated GFR ML/MIN Glucose (74-106) mg/dL POC Glucometer 376 H 429 H (74 to 106) mg/dL Hemoglobin A1c 8.03 H (4.5-6.0) % Lactic Acid (0.4-2.0) Calcium (8.4-10.2) mg/dL Magnesium (1.6-2.3) mg/dL Total Bilirubin (0.2-1.3) mg/dL AST (17-59) U/L ALT (0-50) U/L Alkaline Phosphatase (38-126) U/L Troponin I (0.000-0.034) ng/mL NT-Pro-B Natriuret Pep (0-900) pg/mL Serum Total Protein (6.3-8.2) g/dL Albumin (3.5-5.0) g/dL Lipase (23-300) U/L Urinalys Dipstick Clnc Urine Color (YELLOW) Urine Appearance (CLEAR) Urine pH (5-6) Ur Specific Gilson (1.005-1.025) POC Urine Protein Conf (Negative) Urine Ketones (NEGATIVE) Urine Nitrite (NEGATIVE) Urine Bilirubin (NEGATIVE) Urine Urobilinogen (0-1) mg/dL Urine Leukocytes (NEGATIVE) Urine WBC (Auto) (0-5) /HPF Urine RBC (Auto) (0-2) /HPF U Epithel Cells (Auto) (FEW) /HPF Urine Bacteria (Auto) (NEGATIVE) /HPF Urine RBC (0-5) Los/ul Ur Culture Indicated? Urine Glucose (NEGATIVE) mg/dL SARS-CoV-2 Ag (Rapid) (NEGATIVE) Accuchecks Date 12/03/22 Date 12/02/22 Date 12/02/22 Date 12/02/22 Time 07:52 Time 16:38 Time 15:18 - Radiology Impressions Radiology Exams & Impressions: Radiology Procedures Category Date Time Status CHEST 1 VIEW (PORTABLE) Stat Exams 12/02/22 14:15 Completed - Other Procedures and Tests Respiratory Therapy 12/02/22 16:58 Oxygen Nasal Cannula 3 lpm 12/02/22 17:30 Respiratory Therapy Assessment DAILY Assessment/Plan (1) Post-COVID chronic fatigue Status: Chronic Assessment & Plan: supportive care - rehab Code(s): G93.32 - MYALGIC ENCEPHALOMYELITIS/CHRONIC FATIGUE SYNDROME; U09.9 - POST COVID-19 CONDITION, UNSPECIFIED (2) CLL (chronic lymphocytic leukemia) Status: Chronic Assessment & Plan: treatment stopped due to overall weakness per patient Code(s): C91.10 - CHRONIC LYMPHOCYTIC LEUK OF B-CELL TYPE NOT ACHIEVE REMIS (3) Lactic acidosis Status: Acute Assessment & Plan: see orders Code(s): E87.20 - ACIDOSIS, UNSPECIFIED (4) Hyperglycemia Status: Acute Assessment & Plan: steroid induced Code(s): R73.9 - HYPERGLYCEMIA, UNSPECIFIED
[2022-12-03] MEDS ORDERED: PHARMACY DOSING REQUEST MC ONE (13:44)
[2022-12-03] MEDS: Lexapro PO SCH (14:37)
[2022-12-03] MEDS ORDERED: VENTOLIN COMMON CANISTER IH PRN (14:47)
[2022-12-03] MEDS: MARY'S MAGIC MOUTHWASH PO SCH ×2 (17:43→21:14)
[2022-12-04] MEDS: PROVENTIL 2.5 MG/3 ML NEB IH SCH ×4 (00:30→18:24)
[2022-12-04] MEDS: NORCO 5/325 MG PO PRN ×5 (04:06→21:50)
[2022-12-04] MEDS: HUMALOG SQ PRN ×4 (08:00→22:27)
[2022-12-04] MEDS: Advair Hfa 115/21 Common canister IH SCH ×2 (08:17→18:24)
[2022-12-04] MEDS: Valium 5 MG PO SCH ×2 (09:33→20:44)
[2022-12-04] MEDS: Decadron 4 MG PO SCH ×2 (09:33→20:43)
[2022-12-04] MEDS: PROTONIX 40 MG IV IV SCH (09:34)
[2022-12-04] MEDS: Robitussin-Dm Syrup PO SCH ×4 (09:48→20:45)
[2022-12-04] MEDS: MARY'S MAGIC MOUTHWASH PO SCH ×4 (09:48→20:45)
[2022-12-04] MEDS: Lexapro PO SCH (09:49)
[2022-12-04] MEDS: Levofloxacin 500MG/100ML D5W 500 MG/100 ML BAG IV SCH (09:49)
[2022-12-04] MEDS: Sodium Chloride 0.9% 1000 ML 1,000 ML IV SCH ×2 (10:56→21:51)
[2022-12-04] MEDS: Amaryl 2 MG PO SCH (13:54)
[2022-12-04] MEDS: Glucophage 500 MG PO SCH (13:54)
[2022-12-05] MEDS: NORCO 5/325 MG PO PRN ×3 (01:58→12:57)
[2022-12-05] MEDS: PROVENTIL 2.5 MG/3 ML NEB IH SCH ×3 (02:14→12:22)
[2022-12-05 05:24] LABS: Hematocrit 30.8 % (42-50); Hemoglobin 9.9 g/dL (12.5-18.0); Mean Cell Volume 93.1 fL (78-100); Mean Corpuscular Hemoglobin 29.9 pg (26-32); Mean Corpuscular Hgb Concent. 32.1 g/dL (32-36); Mean Platelet Volume 8.9 fL (7.5-11.0); Platelet Count 162 x10^3/uL (150-450); Red Blood Count 3.31 x10^6/uL (4.1-5.6); Red Cell Distribution Width 18.6 % (11.5-14.0); White Blood Count 6.6 x10^3/uL (4.0-10.5)
[2022-12-05 05:53] LABS: ANION GAP 6.7 MEQ/L (5-15); BLOOD UREA NITROGEN 17 mg/dL (9-20); CHLORIDE 97 mmol/L (98-107); Calcium 8.1 mg/dL (8.4-10.2); Carbon Dioxide 29 mmol/L (22-30); Creatinine 1 0.53 mg/dL (0.66-1.25); EST GLOMERULAR FILTRATION RATE > 60.0 ML/MIN; Glucose 260 mg/dL (74-106); Potassium 4.5 mmol/L (3.5-5.1); SODIUM 128 mmol/L (137-145)
[2022-12-05] MEDS: HUMALOG SQ PRN ×2 (08:08→12:04)
[2022-12-05] MEDS: Decadron 4 MG PO SCH (09:59)
[2022-12-05] MEDS: Amaryl 2 MG PO SCH (09:59)
[2022-12-05] MEDS: PROTONIX 40 MG IV IV SCH (09:59)
[2022-12-05] MEDS: Levofloxacin 500MG/100ML D5W 500 MG/100 ML BAG IV SCH (09:59)
[2022-12-05] MEDS: Glucophage 500 MG PO SCH (09:59)
[2022-12-05] MEDS: Valium 5 MG PO SCH (09:59)
[2022-12-05] MEDS: Lexapro PO SCH (09:59)
[2022-12-05] MEDS: Robitussin-Dm Syrup PO SCH ×2 (10:00→12:56)
[2022-12-05] MEDS ORDERED: Glucophage 500 MG PO ONE (10:00)
[2022-12-05] MEDS ORDERED: Amaryl 2 MG PO SCH (10:00)
[2022-12-05] MEDS: MARY'S MAGIC MOUTHWASH PO SCH ×2 (10:00→12:56)
[2022-12-05 11:39] VITALS: BP 132/72
[2022-12-05] MEDS ORDERED: Diflucan 100 MG PO ONE (12:45)
[2022-12-05 12:49] VITALS: PULSE 107; O2SAT 97
== END 2022-12-05 13:10 | disposition home or self-care (01) ==
LOC: ED 13:25 → MED SURG 16:50
PROVIDERS: ADMIT Family Medicine; ATTEND Family Medicine
DX: R53.1 Weakness (principal); U09.9 Post COVID-19 condition, unspecified; G93.32 Myalgic encephalomyelitis/chronic fatigue syndrome; C91.10 Chronic lymphocytic leukemia of B-cell type not having achieved remission; E11.65 Type 2 diabetes mellitus with hyperglycemia; D64.9 Anemia, unspecified; J96.10 Chronic respiratory failure, unspecified whether with hypoxia or hypercapnia; E87.20 Acidosis, unspecified; Z99.81 Dependence on supplemental oxygen; Z79.899 Other long term (current) drug therapy; Z20.828 Contact with and (suspected) exposure to other viral communicable diseases
CPT/HCPCS: 36000; 36415; 71045; 80048; 80053; 81015; 82947; 83036; 83605; 83690; 83735; 83880; 84484; 85025; 85027; 87040; 87811; 93005; 93268; 94640; 94760; 94762; 96360; 96365; 96374; 97110; 97161; 99285; G0378; J1815; J1817; J1956; J2405; J7609; A9270-GY

== ENCOUNTER 2023-03-15 21:40 | Emergency (ER) | payer OTHER ==
[2023-03-15 21:45] VITALS: O2SAT 94
--- NOTE | 2023-03-15 22:17 | ERPHSYRPT ---
- History of Present Illness Time Seen by Provider: 03/15/23 22:12 Source: patient, family Exam Limitations: no limitations Patient Subjective Stated Complaint: shortness of breath, cough Triage Nursing Assessment: pt brought into ER by his sister, brought into room via wheelchair. Pt alert and oriented x4, very talkative. Pt c/o sob. Pt states, "I know I have pneumonia". I've been short of breath x6 days but it got worse today. Pt was 86% on rm air upon arrival. Pt wears O2 at home at 2L n/c. Once placed on O2, pt's O2 sats ev to 94%. Exp wheezes noted throughout ant and post. Pt has prod cough with thick yellow sputum, per pt. Heart tones reg, abd soft with active bs x4 quad, nontender. Physician History: Pt had lympoma and went into remission but now has CLL and is on Tx for that, but felt more SOBreath tonight. Has rhonchi throughout. Denies cardiac . Discussed labs , CXR, CBC, CMP, D DImer, Trops , EKG, with pt and ordered after discussion of risk/benefit, , Reviewed and reviewed results with pt Normal mental status. collaborated hx with family (sister)present as independent source. pt states he uses 2 l O2 at home chronically now. Timing/Duration: today Activities at Onset: none Severity of Dyspnea-Max: moderate Severity of Dyspnea-Current: moderate Possible Cause: frequent episodes Modifying Factors: Improves With: nothing Associated Symptoms: cough, wheezing Allergies/Adverse Reactions: No Known Drug Allergies Allergy (Verified 03/15/23 21:58) Home Medications: Albuterol Sulfate [Albuterol Sulfate Hfa] 2 puff PO Q6H PRN PRN 12/02/22 [ History] Albuterol/Ipratropium 3ml Neb* [DUONEB 0.5-3 MG/3 ml Neb] 1 vial NEB QID 12/02/22 [History] Budesonide/Formoterol Fumarate [Budesonide-Formoterol 80-4.5] 2 puff PO BID 12/02/22 [History] Hx Tetanus, Diphtheria Vaccination/Date Given: Yes Hx Influenza Vaccination/Date Given: No Hx Pneumococcal Vaccination/Date Given: No Immunizations Up to Date: Yes Travel Risk - International Travel Have you traveled outside of the country in past 3 weeks: No - Coronavirus Screening Are you exhibiting any of the following symptoms?: Yes Symptoms: Fever, Cough: New Onset, Shortness of Breath, Headaches/Body Aches/Fatigue Close contact with a COVID-19 positive Pt in past 14-21 Days: No - Vaccine Status Have you recieved a Covid-19 vaccination: No - Review of Systems Constitutional: No Fever, No Chills Eyes: No Symptoms Ears, Nose, & Throat: No Symptoms Respiratory: Cough, Dyspnea Cardiac: No Chest Pain, No Edema, No Syncope Abdominal/Gastrointestinal: No Abdominal Pain, No Nausea, No Vomiting, No Diarrhea Genitourinary Symptoms: No Dysuria Musculoskeletal: No Back Pain, No Neck Pain Skin: No Symptoms, No Rash Neurological: No Dizziness, No Focal Weakness, No Sensory Changes Psychological: No Symptoms Endocrine: No Symptoms Hematologic/Lymphatic: No Symptoms Immunological/Allergic: No Symptoms All Other Systems: Reviewed and Negative - Past Medical History Pertinent Past Medical History: Yes Neurological History: No Pertinent History ENT History: No Pertinent History Cardiac History: No Pertinent History Respiratory History: Bronchitis, COPD, Pneumonia Endocrine Medical History: Diabetes Type II Musculoskeletal History: No Pertinent History GI Medical History: Hernia History: No Pertinent History Psycho-Social History: Anxiety, Depression Male Reproductive Disorders: No Pertinent History Other Medical History: HERNIA, ANXIETY, CLL, COVID IN OCT 2022, STAGE IV LYMPHOMA. FORMER SMOKER - Past Surgical History Past Surgical History: Yes Neuro Surgical History: No Pertinent History Cardiac: No Pertinent History Respiratory: No Pertinent History Gastrointestinal: Hernia Repair Genitourinary: No Pertinent History Musculoskeletal: Other Male Surgical History: Prostate Surgery Other Surgical History: carpal tunnel surgery, right elbow, tumor removed to left side of neck. - Social History Smoking Status: Former smoker Exposure to second hand smoke: Yes Drug Use: none Patient Lives Alone: No - Nursing Vital Signs Nursing Vital Signs: Initial Vital Signs Temperature 100.6 F 03/15/23 21:43 Pulse Rate 113 H 03/15/23 21:43 Respiratory Rate 24 03/15/23 21:43 Blood Pressure 151/99 03/15/23 21:43 O2 Sat by Pulse Oximetry 94 L 03/15/23 21:43 Pain Scale Pain Intensity 2 - Physical Exam General Appearance: no apparent distress, alert Eye Exam: PERRL/EOMI Neck Exam: normal inspection, supple Respiratory Exam: crackles/rales, rhonchi, wheezing Cardiovascular/Chest Exam: normal heart sounds, regular rate/rhythm Abdominal/Gastrointestinal Exam: soft, No tenderness, No distention, No mass Rectal Exam: deferred Extremity Exam: non-tender, normal range of motion, normal inspection, no calf tenderness, no pedal edema Peripheral Pulses Exam: carotid (R): 2+, carotid (L): 2+, femoral (R): 2+, femoral (L): 2+, dorsalis-pedis (R): 2+, dorsalis-pedis (L): 2+ Neurologic Exam: alert, oriented x 3, cooperative, stiff leg operator II-XII nml as tested, normal mood/affect, nml cerebellar function, nml station & gait, sensation nml, No motor deficits Skin Exam: normal color, warm, No dry SpO2 Interpretation: borderline oxygenation SpO2: 94 O2 Delivery: Nasal Cannula - Course Nursing assessment & vital signs reviewed: Yes EKG Interpreted by Me: Sinus Tach, NORMAL AXIS, NORMAL INTERVALS, NORMAL QRS, Non-specific ST Changes Ordered Tests: Active Orders 24 hr Category Date Time Status Illuminating Engineer STAT Care 03/15/23 22:19 Active EKG-ER Only STAT Care 03/15/23 22:18 Active IV Insertion STAT Care 03/15/23 22:18 Active Pulse Oximetry (ED) STAT Care 03/15/23 22:18 Active CHEST 2 VIEWS (PA AND LAT) Stat Exams 03/15/23 22:19 Taken BLOOD CULTURE Stat Lab 03/15/23 22:34 Received CBC W DIFF Stat Lab 03/15/23 22:34 Completed CMP Stat Lab 03/15/23 22:34 Completed D-DIMER QUANTITATIVE Stat Lab 03/15/23 22:34 Completed Manual Differential NC Stat Lab 03/15/23 22:34 Completed NT PRO BNPII Stat Lab 03/15/23 22:34 Completed TROPONIN Q4H Lab 03/15/23 22:34 Completed TROPONIN Q4H Lab 03/16/23 02:30 Ordered TROPONIN Q4H Lab 03/16/23 06:30 Ordered UA W/RFX UR CULTURE Stat Lab 03/15/23 22:18 Ordered Respiratory Therapy Assessment DAILY RT 03/15/23 22:37 Active Medication Summary Generic Name Dose Route Start Last Admin Trade Name Freq PRN Reason Stop Dose Admin Sodium Chloride 1,000 mls @ 100 mls/hr 03/15/23 22:30 03/15/23 22:28 Sodium Chloride 0.9% 1000 Ml IV 04/14/23 22:29 100 mls/hr .Q10H JONY Administration Discontinued Medications Generic Name Dose Route Start Last Admin Trade Name Lety PRN Reason Stop Dose Admin Hydrocodone Bitart/Acetaminophen Confirm 03/15/23 23:05 Hydrocodone/Acetaminophen 5 Ml Udcup Administered 03/15/23 23:06 Dose 15 ml .ROUTE .STK-MED ONE Hydrocodone Bitart/Acetaminophen 15 ml 03/15/23 23:09 03/15/23 23:13 Hydrocodone/Acetaminophen 5 Ml Udcup PO 03/15/23 23:10 15 ml STAT STA Administration Albuterol/Ipratropium 3 ml 03/15/23 22:18 03/15/23 22:32 Ipratropium/Albuterol Sulfate 3 Ml Ampul.Neb IH 03/15/23 22:19 3 ml STAT ONE Administration Albuterol/Ipratropium Confirm 03/15/23 22:31 Ipratropium/Albuterol Sulfate 3 Ml Ampul.Neb Administered 03/15/23 22:32 Dose 3 ml IH .STK-MED ONE Methylprednisolone Sodium 0 mg 03/15/23 22:30 03/15/23 22:33 Succinate 125 mg/ Sterile IV 03/15/23 22:31 125 mg Water 2 ml STAT ONE Administration Ceftriaxone Sodium/Dextrose 1 g in 50 mls @ 100 mls/hr 03/15/23 22:18 03/15/23 22:27 Rocephin 1 Gm-D5w 50 Ml Bag IV 03/15/23 22:47 100 mls/hr STAT STA 100 mls/hr Administration Ceftriaxone Sodium/Dextrose Confirm 03/15/23 22:27 Rocephin 1 Gm-D5w 50 Ml Bag Administered 03/15/23 22:28 Dose 1 g in 50 mls @ ud IV .STK-MED ONE Methylprednisolone Sodium Succinate Confirm 03/15/23 22:32 Methylprednis Sod Succ 125 Mg/2 Ml Vial Administered 03/15/23 22:33 Dose 125 mg .ROUTE .STK-MED ONE Sterile Water Confirm 03/15/23 22:32 Water For Injection,Sterile 10 Ml Vial Administered 03/15/23 22:33 Dose 10 ml IJ .STK-MED ONE Lab/Rad Data: Laboratory Result Diagrams 03/15/23 22:34 03/15/23 22:34 Laboratory Results 03/15/23 03/15/23 03/15/23 Range/Units 22:34 22:34 22:34 WBC (4.0-10.5) x10^3/uL RBC (4.1-5.6) x10^6/uL Hgb (12.5-18.0) g/dL Hct (42-50) % MCV (78-100) fL MCH (26-32) pg MCHC (32-36) g/dL RDW (11.5-14.0) % Plt Count (150-450) x10^3/uL MPV (7.5-11.0) fL Segmented Neutrophils (36.-66.) % Band Neutrophils (0.0-2.0) % Lymphocytes (Manual) (24-44) % Eosinophils (Manual) (0.00-3.0) % Platelet Estimate (NORMAL) RBC Morphology D-Dimer 0.49 (0.0-0.50) mg/L Sodium (137-145) mmol/L Potassium (3.5-5.1) mmol/L Chloride (98-107) mmol/L Carbon Dioxide (22-30) mmol/L Anion Gap (5-15) MEQ/L BUN (9-20) mg/dL Creatinine (0.66-1.25) mg/dL Estimated GFR ML/MIN Glucose (74-106) mg/dL Calcium (8.4-10.2) mg/dL Total Bilirubin (0.2-1.3) mg/dL AST (17-59) U/L ALT (0-50) U/L Alkaline Phosphatase (38-126) U/L Troponin I < 0.012 (0.000-0.034) ng/mL NT-Pro-B Natriuret Pep 241 (<300) pg/mL Serum Total Protein (6.3-8.2) g/dL Albumin (3.5-5.0) g/dL Influenza Type A Ag NEGATIVE (NEGATIVE) Influenza Type B Ag NEGATIVE (NEGATIVE) RSV (PCR) NEGATIVE (NEGATIVE) SARS-CoV-2 (PCR) POSITIVE A (NEGATIVE) 03/15/23 03/15/23 Range/Units 22:34 22:34 WBC 9.4 (4.0-10.5) x10^3/uL RBC 3.41 L (4.1-5.6) x10^6/uL Hgb 9.8 L (12.5-18.0) g/dL Hct 29.9 L (42-50) % MCV 87.7 (78-100) fL MCH 28.7 (26-32) pg MCHC 32.8 (32-36) g/dL RDW 16.6 H (11.5-14.0) % Plt Count 191 (150-450) x10^3/uL MPV 10.1 (7.5-11.0) fL Segmented Neutrophils 8 L (36.-66.) % Band Neutrophils 2 (0.0-2.0) % Lymphocytes (Manual) 88 H (24-44) % Eosinophils (Manual) 2 (0.00-3.0) % Platelet Estimate NORMAL (NORMAL) RBC Morphology NORMAL D-Dimer (0.0-0.50) mg/L Sodium 134 L (137-145) mmol/L Potassium 4.1 (3.5-5.1) mmol/L Chloride 94 L (98-107) mmol/L Carbon Dioxide 31 H (22-30) mmol/L Anion Gap 13.6 (5-15) MEQ/L BUN 9 (9-20) mg/dL Creatinine 0.81 (0.66-1.25) mg/dL Estimated GFR > 60.0 ML/MIN Glucose 132 H (74-106) mg/dL Calcium 8.9 (8.4-10.2) mg/dL Total Bilirubin 0.80 (0.2-1.3) mg/dL AST 27 (17-59) U/L ALT 15 (0-50) U/L Alkaline Phosphatase 88 (38-126) U/L Troponin I (0.000-0.034) ng/mL NT-Pro-B Natriuret Pep (<300) pg/mL Serum Total Protein 6.3 (6.3-8.2) g/dL Albumin 3.8 (3.5-5.0) g/dL Influenza Type A Ag (NEGATIVE) Influenza Type B Ag (NEGATIVE) RSV (PCR) (NEGATIVE) SARS-CoV-2 (PCR) (NEGATIVE) - Progress Progress: improved, re-examined Air Movement: good Progress Note: 03/15/23 23:[address] Blanc covering for Dr. Tolbert Oncologist regarding placing pt on Paxlovid regarding any interactions with his meds baylee the gamma guard. He states that nothing Mr Betito Colmenares is on will be interfered by paxlovid and also give a half dose of regular gamma globulin .5 gm/kg . Discussed with pt risks for comlications such as blood clots and deterioration of respiratory status and he wishes to proceed with paxlovid and prefers trial outpt with paxlovid and DC with outpt f/u rather than admission and will see Dr. Tolbert this week in f/u and return meantime if not improving. He has the capacity to make this choice. 03/15/23 23:43 Blood Culture(s) Obtained: Yes Antibiotics given: Yes Discussed with Dr.: Other (Dr. Blanc covering viji Dr. tolbert) Will see patient in: office Counseled pt/family regarding: lab results, diagnosis, need for follow-up, rad results Medical Desision Making - Independent Historian Additional History obtained from: Family - Discussion of managment Care discussed with:: specialist Reviewed:: Test results, Need for additional workup Agreed on:: Treatment plan, need for follow-up Will see patient: In office - Departure Departure Disposition: Home Clinical Impression: CLL (chronic lymphocytic leukemia), COVID Condition: Good Critical Care Time: No Referrals: SONIA MILLAN MD [Primary Care Provider] - Follow up/PCP as directed Instructions: COVID-19 (DC), Nirmatrelvir and Ritonavir Additional Instructions: followup with your oncologist this week and touch base with your regular Dr. also to make sure you are doing well. use your oxygen. return meantime if further shortness of breath because you are at risk for complications from your underlying condition and from Covid. Followup with your DrBetito for your blood pressure as well. Prescriptions: Nirmatrelvir/Ritonavir [Paxlovid 300-100 mg Pack (Eua)] 1 each PO BID #10
[2023-03-15] MEDS ORDERED: DUONEB 0.5-3 MG/3 ml Neb IH ONE ×2 (22:18→22:31)
[2023-03-15] MEDS ORDERED: ROCEPHIN 1 Gm-D5w 50 ml Bag** 1 G/50 ML IVPB IV STA (22:18)
[2023-03-15] MEDS ORDERED: ROCEPHIN 1 Gm-D5w 50 ml Bag** 1 G/50 ML IVPB IV ONE (22:27)
[2023-03-15] MEDS ORDERED: Sodium Chloride 0.9% 1000 ML 1,000 ML ONE (22:27)
[2023-03-15] MEDS ORDERED: Sodium Chloride 0.9% 1000 ML 1,000 ML IV SCH (22:30)
[2023-03-15] MEDS ORDERED: solu-MEDROL 125 MG, Sterile H2O 10 ml 2 ML IV ONE ×2 (22:30)
[2023-03-15] MEDS ORDERED: solu-MEDROL ONE (22:32)
[2023-03-15] MEDS ORDERED: Sterile H2O 10 ml IJ ONE (22:32)
[2023-03-15 22:39] LABS: Hematocrit 29.9 % (42-50); Hemoglobin 9.8 g/dL (12.5-18.0); Mean Cell Volume 87.7 fL (78-100); Mean Corpuscular Hemoglobin 28.7 pg (26-32); Mean Corpuscular Hgb Concent. 32.8 g/dL (32-36); Mean Platelet Volume 10.1 fL (7.5-11.0); Platelet Count 191 x10^3/uL (150-450); Red Blood Count 3.41 x10^6/uL (4.1-5.6); Red Cell Distribution Width 16.6 % (11.5-14.0); White Blood Count 9.4 x10^3/uL (4.0-10.5)
[2023-03-15 22:53] LABS: ALBUMIN 3.8 g/dL (3.5-5.0); ALKALINE PHOSPHATASE 88 U/L (38-126); ANION GAP 13.6 MEQ/L (5-15); BLOOD UREA NITROGEN 9 mg/dL (9-20); CHLORIDE 94 mmol/L (98-107); Calcium 8.9 mg/dL (8.4-10.2); Carbon Dioxide 31 mmol/L (22-30); Creatinine 1 0.81 mg/dL (0.66-1.25); EST GLOMERULAR FILTRATION RATE > 60.0 ML/MIN; Glucose 132 mg/dL (74-106); Potassium 4.1 mmol/L (3.5-5.1); SGOT/AST 27 U/L (17-59); SGPT/ALT 15 U/L (0-50); SODIUM 134 mmol/L (137-145); Total Protein 6.3 g/dL (6.3-8.2)
[2023-03-15 23:05] LABS: NT PRO BNPII 241 pg/mL (<300); TROPONIN < 0.012 ng/mL (0.000-0.034)
[2023-03-15] MEDS ORDERED: HYDROCODONE-ACETAMIN 2.5-108/5 ML SOLUTION ONE (23:05)
[2023-03-15] MEDS ORDERED: HYDROCODONE-ACETAMIN 2.5-108/5 ML SOLUTION PO STA (23:09)
[2023-03-15 23:18] LABS: INFLUENZA A NEGATIVE (NEGATIVE); INFLUENZA B NEGATIVE (NEGATIVE); RESPIRATORY SYNCTIAL VIRUS NEGATIVE (NEGATIVE)
[2023-03-15 23:21] LABS: SARS-CoV-2 Xpert Express POSITIVE (NEGATIVE)
[2023-03-15 23:33] LABS: BAND 2 % (0.0-2.0); Eosinophil 2 % (0.00-3.0); Lymphocytes 88 % (24-44); Neutrophils 8 % (36.-66.); Platelet Estimate NORMAL (NORMAL); Total Cells Counted 100
[2023-03-16 00:18] VITALS: BP 141/92; PULSE 106
[2023-03-16] MEDS ORDERED: NON-FORMULARY ITEM PO ONE (00:30)
--- NOTE | 2023-03-16 08:03 | XRAY ---
Indication: Short of breath. Positive Covid 19. Comparison: December 02, 2022 Portable chest again hyperinflated with new minimal left infrahilar subsegmental atelectasis/scarring. No focal infiltrate, consolidation, or large effusion. Heart and mediastinal structures within normal limits with new left Port-A-Cath. Bony thorax intact with minimal degenerative changes. Impression: Nonacute hyperinflated chest.
== END 2023-03-16 00:42 | disposition home or self-care (01) ==
LOC: ED 21:40
DX: U07.1 COVID-19 (principal); C91.10 Chronic lymphocytic leukemia of B-cell type not having achieved remission; R06.02 Shortness of breath; Z99.81 Dependence on supplemental oxygen; J44.9 Chronic obstructive pulmonary disease, unspecified; E11.9 Type 2 diabetes mellitus without complications; Z86.16 Personal history of COVID-19; Z79.899 Other long term (current) drug therapy; Z28.310 Unvaccinated for COVID-19
CPT/HCPCS: 0241U; 36000; 36415; 71046; 80053; 83880; 84484; 85025; 85379; 87040; 93005; 93041; 94640; 94760; 96374; 99284; J0696; J2930; A9270-GY

== ENCOUNTER 2023-03-26 20:48 | Observation (INO) | payer OTHER ==
[2023-03-26] MEDS ORDERED: DUONEB 0.5-3 MG/3 ml Neb IH ONE ×3 (21:04→23:22)
[2023-03-26] MEDS ORDERED: Sodium Chloride 0.9% 1000 ML 1,000 ML IV SCH (21:45)
[2023-03-26] MEDS ORDERED: solu-MEDROL 125 MG, Sterile H2O 10 ml 2 ML IV ONE ×2 (22:03)
[2023-03-26] MEDS ORDERED: NORCO 5/325 MG PO ONE (22:03)
[2023-03-26] MEDS ORDERED: NORCO 5/325 MG ONE (22:08)
[2023-03-26] MEDS ORDERED: Sterile H2O 10 ml IJ ONE (22:08)
[2023-03-26] MEDS ORDERED: solu-MEDROL ONE (22:08)
[2023-03-26 22:12] LABS: Hematocrit 26.2 % (42-50); Hemoglobin 8.3 g/dL (12.5-18.0); Mean Cell Volume 89.7 fL (78-100); Mean Corpuscular Hemoglobin 28.4 pg (26-32); Mean Corpuscular Hgb Concent. 31.7 g/dL (32-36); Mean Platelet Volume 9.9 fL (7.5-11.0); Platelet Count 339 x10^3/uL (150-450); Red Blood Count 2.92 x10^6/uL (4.1-5.6); Red Cell Distribution Width 17.3 % (11.5-14.0); White Blood Count 18.9 x10^3/uL (4.0-10.5)
[2023-03-26 22:26] LABS: ALKALINE PHOSPHATASE 111 U/L (38-126); ANION GAP 12.2 MEQ/L (5-15); BLOOD UREA NITROGEN 10 mg/dL (9-20); CHLORIDE 90 mmol/L (98-107); Calcium 9.1 mg/dL (8.4-10.2); Carbon Dioxide 33 mmol/L (22-30); Creatinine 1 0.74 mg/dL (0.66-1.25); EST GLOMERULAR FILTRATION RATE > 60.0 ML/MIN; Glucose 162 mg/dL (74-106); Potassium 4.1 mmol/L (3.5-5.1); SGOT/AST 35 U/L (17-59); SGPT/ALT 22 U/L (0-50); SODIUM 132 mmol/L (137-145); Total Protein 7.4 g/dL (6.3-8.2)
[2023-03-26 22:50] LABS: INFLUENZA A NEGATIVE (NEGATIVE); INFLUENZA B NEGATIVE (NEGATIVE); RESPIRATORY SYNCTIAL VIRUS NEGATIVE (NEGATIVE); SARS-CoV-2 Xpert Express NEGATIVE (NEGATIVE)
--- NOTE | 2023-03-26 22:50 | ERPHSYRPT ---
- History of Present Illness Time Seen by Provider: 03/26/23 20:55 Source: patient Exam Limitations: no limitations Patient Subjective Stated Complaint: pt states I last week I tested positive for covid and have pneumonia. I have been short of breath all day Triage Nursing Assessment: pt came into the er via BLS ambulance; pt is axo x4; c/o shortness of breath; pt arrived to er on albuterol nebulizer per EMT; pt is in tripod position; SOB and distress present; O2 on arrival was 92%; diminished breath sounds in britt lower lobes; britt upper lobes wheezing present; productive cough present; sputum forbes, brown; skin pale, dry, warm; hypertensive; tachycardic Physician History: Patient is a 52-year-old male with a history of leukemia presents to our ED for evaluation of shortness of breath. Patient presented to our ED via EMS. Patient arrived receiving a nebulizer treatment. Patient advises that he is not currently receiving chemotherapy treatment due to depressed immune system. Patient advises that he tested positive for COVID last week. Patient's COVID diagnoses associated with pneumonia. Upon arrival to our ED patient O2 sat on room air was 92%. Patient describes a cough productive of quinteros sputum. No fever. Patient was observed to be tachycardic. Mildly hypertensive. No chest pain. Patient's symptoms are constant. Symptoms are moderate in intensity. No specific worsening improving factors. Patient voices no other complaints or concerns at this time. Portions of this note were created with voice recognition technology. There may be grammatical, spelling, punctuation or sound alike errors Timing/Duration: today Severity: moderate Modifying Factors: Improves With: nothing Associated Symptoms: No nausea, No vomiting, No diaphoresis, No chills Allergies/Adverse Reactions: No Known Drug Allergies Allergy (Verified 03/26/23 20:53) Home Medications: Albuterol Sulfate [Albuterol Sulfate Hfa] 2 puff PO Q6H PRN PRN 12/02/22 [History] Albuterol/Ipratropium 3ml Neb* [DUONEB 0.5-3 MG/3 ml Neb] 1 vial NEB QID 12/02/22 [History] Budesonide/Formoterol Fumarate [Budesonide-Formoterol 80-4.5] 2 puff PO BID 01/02/23 [History] Hx Tetanus, Diphtheria Vaccination/Date Given: Yes Hx Influenza Vaccination/Date Given: No Hx Pneumococcal Vaccination/Date Given: No Travel Risk - International Travel Have you traveled outside of the country in past 3 weeks: No - Coronavirus Screening Are you exhibiting any of the following symptoms?: Yes Symptoms: Cough: New Onset, Shortness of Breath Close contact with a COVID-19 positive Pt in past 14-21 Days: No - Vaccine Status Have you recieved a Covid-19 vaccination: No - Review of Systems Constitutional: No Symptoms, No Fever, No Chills Eyes: No Symptoms Ears, Nose, & Throat: No Symptoms Respiratory: No Symptoms, No Cough, No Dyspnea Cardiac: No Symptoms, No Chest Pain, No Edema, No Syncope Abdominal/Gastrointestinal: No Symptoms, No Abdominal Pain, No Nausea, No Vomiting, No Diarrhea Genitourinary Symptoms: No Symptoms, No Dysuria Musculoskeletal: No Symptoms, No Back Pain, No Neck Pain Skin: No Symptoms, No Rash Neurological: No Symptoms, No Dizziness, No Focal Weakness, No Sensory Changes Psychological: No Symptoms Endocrine: No Symptoms Hematologic/Lymphatic: No Symptoms Immunological/Allergic: No Symptoms All Other Systems: Reviewed and Negative - Past Medical History Pertinent Past Medical History: Yes Neurological History: No Pertinent History ENT History: No Pertinent History Cardiac History: No Pertinent History Respiratory History: Bronchitis, COPD, Pneumonia Endocrine Medical History: Diabetes Type II Musculoskeletal History: No Pertinent History GI Medical History: Hernia History: No Pertinent History Psycho-Social History: Anxiety, Depression Male Reproductive Disorders: No Pertinent History Other Medical History: HERNIA, ANXIETY, CLL, COVID IN OCT 2022, STAGE IV LYMPHOMA. FORMER SMOKER - Past Surgical History Past Surgical History: Yes Neuro Surgical History: No Pertinent History Cardiac: No Pertinent History Respiratory: No Pertinent History Gastrointestinal: Hernia Repair Genitourinary: No Pertinent History Musculoskeletal: Other Male Surgical History: Prostate Surgery Other Surgical History: carpal tunnel surgery, right elbow, tumor removed to left side of neck. - Social History Smoking Status: Former smoker Exposure to second hand smoke: Yes Drug Use: none Patient Lives Alone: No - Nursing Vital Signs Nursing Vital Signs: Initial Vital Signs Temperature 97.8 F 03/26/23 20:48 Pulse Rate 125 H 03/26/23 20:48 Respiratory Rate 34 H 03/26/23 20:48 Blood Pressure 161/106 03/26/23 20:48 O2 Sat by Pulse Oximetry 94 L 03/26/23 20:48 Pain Scale Pain Intensity 8 - Physical Exam General Appearance: no apparent distress, alert Eye Exam: PERRL/EOMI, eyes nml inspection Ears, Nose, Throat Exam: normal ENT inspection, TMs normal, pharynx normal, moist mucous membranes Neck Exam: normal inspection, non-tender, supple, full range of motion Respiratory Exam: normal breath sounds, lungs clear, airway intact, other (Diminished breath sounds bilaterally), No respiratory distress Cardiovascular Exam: regular rate/rhythm, normal heart sounds, normal peripheral pulses Gastrointestinal/Abdomen Exam: soft, normal bowel sounds, No tenderness, No mass Back Exam: normal inspection, normal range of motion, No CVA tenderness, No vertebral tenderness Extremity Exam: normal inspection, normal range of motion, pelvis stable Neurologic Exam: alert, oriented x 3, cooperative, normal mood/affect, nml cerebellar function, nml station & gait, sensation nml, No motor deficits Skin Exam: normal color, warm, dry, No rash Lymphatic Exam: No adenopathy SpO2 Interpretation: normal SpO2: 97 O2 Delivery: Room Air - Course Nursing assessment & vital signs reviewed: Yes - Radiology Exams Chest X-ray Interpretation: Reviewed by me (The chest x-ray) - CT Exams Chest CT Interpretation: Tele-radiologist Report (Nonremarkable CTA chest. 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 03/26/23 21:32 Active IV Insertion STAT Care 03/26/23 21:31 Active Pulse Oximetry (ED) STAT Care 03/26/23 21:31 Active CHEST 1 VIEW (PORTABLE) Stat Exams 03/26/23 21:32 Taken CHEST WITH CONTRAST [CT] Stat Exams 03/26/23 22:49 Completed BLOOD CULTURE Stat Lab 03/26/23 21:48 Received CBC W DIFF Stat Lab 03/26/23 21:00 Completed CMP Stat Lab 03/26/23 21:00 Completed Lactic Acid Stat Lab 03/26/23 22:10 Completed Manual Differential NC Stat Lab 03/26/23 21:00 Completed UA W/RFX UR CULTURE Stat Lab 03/27/23 00:21 Completed Respiratory Therapy Assessment DAILY RT 03/26/23 21:04 Active Transfer Order Routine Transfer 03/27/23 Ordered Medication Summary Generic Name Dose Route Start Last Admin Trade Name Freq PRN Reason Stop Dose Admin Albuterol/Ipratropium 3 ml 03/26/23 23:30 03/26/23 23:25 Ipratropium/Albuterol Sulfate 3 Ml Ampul.Neb 04/25/23 23:29 3 ml Q4H JONY Administration Sodium Chloride 1,000 mls @ 100 mls/hr 03/26/23 21:45 03/26/23 22:00 Sodium Chloride 0.9% 1000 Ml IV 04/25/23 21:44 100 mls/hr .Q10H JONY Administration Azithromycin 500 mg in 250 mls @ 250 mls/hr 03/27/23 03:08 Zithromax 500 Mg/ 250 Ml Nacl Premix IV 03/27/23 04:07 STAT STA Ceftriaxone Sodium/Dextrose 2 g in 50 mls @ 100 mls/hr 03/27/23 03:08 03/27/23 03:23 Rocephin 2 Gm-D5w 50ml Bag IV 03/27/23 03:37 100 mls/hr STAT STA 100 mls/hr Administration Discontinued Medications Generic Name Dose Route Start Last Admin Trade Name Lety PRN Reason Stop Dose Admin Hydrocodone Bitart/Acetaminophen 1 tab 03/26/23 22:03 03/26/23 22:10 Hydrocodone/Apap 5/325 1 Tab Tablet PO 03/26/23 22:04 1 tab STAT ONE Administration Hydrocodone Bitart/Acetaminophen Confirm 03/26/23 22:08 Hydrocodone/Apap 5/325 1 Tab Tablet Administered 03/26/23 22:09 Dose 1 tab .ROUTE .STK-MED ONE Hydrocodone Bitart/Acetaminophen 5 ml 03/27/23 03:14 03/27/23 03:23 Hydrocodone/Acetaminophen 5 Ml Udcup PO 03/27/23 03:15 5 ml STAT STA Administration Hydrocodone Bitart/Acetaminophen Confirm 03/27/23 03:15 Hydrocodone/Acetaminophen 5 Ml Udcup Administered 03/27/23 03:16 Dose 5 ml .ROUTE .STK-MED ONE Albuterol/Ipratropium 3 ml 03/26/23 21:04 03/26/23 21:05 Ipratropium/Albuterol Sulfate 3 Ml Ampul.Neb 03/26/23 21:05 3 ml STAT ONE Administration Albuterol/Ipratropium Confirm 03/26/23 21:14 Ipratropium/Albuterol Sulfate 3 Ml Ampul.Neb Administered 03/26/23 21:15 Dose 3 ml IH .STK-MED ONE Methylprednisolone Sodium 0 mg 03/26/23 22:03 03/26/23 22:10 Succinate 125 mg/ Sterile IV 03/26/23 22:04 125 mg Water 2 ml STAT ONE Administration Ceftriaxone Sodium/Dextrose Confirm 03/27/23 03:16 Rocephin 2 Gm-D5w 50ml Bag Administered 03/27/23 03:17 Dose 2 g in 50 mls @ ud IV .STK-MED ONE Methylprednisolone Sodium Succinate Confirm 03/26/23 22:08 Methylprednis Sod Succ 125 Mg/2 Ml Vial Administered 03/26/23 22:09 Dose 125 mg .ROUTE .STK-MED ONE Sterile Water Confirm 03/26/23 22:08 Water For Injection,Sterile 10 Ml Vial Administered 03/26/23 22:09 Dose 10 ml IJ .STK-MED ONE Lab/Rad Data: Laboratory Result Diagrams 03/26/23 21:00 03/26/23 21:00 Laboratory Results 03/27/23 03/26/23 03/26/23 Range/Units 00:21 22:10 21:48 WBC (4.0-10.5) x10^3/uL RBC (4.1-5.6) x10^6/uL Hgb (12.5-18.0) g/dL Hct (42-50) % MCV (78-100) fL MCH (26-32) pg MCHC (32-36) g/dL RDW (11.5-14.0) % Plt Count (150-450) x10^3/uL MPV (7.5-11.0) fL Segmented Neutrophils (36.-66.) % Lymphocytes (Manual) (24-44) % Monocytes (Manual) (0.0-12.0) % Platelet Estimate (NORMAL) RBC Morphology Poikilocytosis Anisocytosis Stomatocytes Sodium (137-145) mmol/L Potassium (3.5-5.1) mmol/L Chloride (98-107) mmol/L Carbon Dioxide (22-30) mmol/L Anion Gap (5-15) MEQ/L BUN (9-20) mg/dL Creatinine (0.66-1.25) mg/dL Estimated GFR ML/MIN Glucose (74-106) mg/dL Lactic Acid 0.9 (0.4-2.0) Calcium (8.4-10.2) mg/dL Total Bilirubin (0.2-1.3) mg/dL AST (17-59) U/L ALT (0-50) U/L Alkaline Phosphatase (38-126) U/L Serum Total Protein (6.3-8.2) g/dL Albumin (3.5-5.0) g/dL Urine Color Yellow (Yellow) Urine Appearance Clear (Clear) Urine pH 5.5 (4.6-8.0) Ur Specific [place] 1.015 (1.005-1.030) Urine Protein 30 (Negative) Urine Glucose (UA) Negative (Negative) mg/dL Urine Ketones Negative (Negative) Urine Blood Negative (Negative) Urine Nitrite Negative (Negative) Urine Bilirubin Negative (Negative) Urine Urobilinogen 1.0 A (0.2) mg/dL Ur Leukocyte Esterase Negative (Negative) U Hyaline Cast (Auto) 3-5 A (0-2) /LPF Urine Microscopic RBC 0-2 (0-5) /HPF Urine Microscopic WBC 0-2 (0-5) /HPF Ur Epithelial Cells None Seen (None Seen) /HPF Urine Bacteria None Seen (None Seen) /HPF Urine Culture Reflexed NO (NO) Influenza Type A Ag NEGATIVE (NEGATIVE) Influenza Type B Ag NEGATIVE (NEGATIVE) RSV (PCR) NEGATIVE (NEGATIVE) SARS-CoV-2 (PCR) NEGATIVE (NEGATIVE) 03/26/23 03/26/23 Range/Units 21:00 21:00 WBC 18.9 H (4.0-10.5) x10^3/uL RBC 2.92 L (4.1-5.6) x10^6/uL Hgb 8.3 L (12.5-18.0) g/dL Hct 26.2 L (42-50) % MCV 89.7 (78-100) fL MCH 28.4 (26-32) pg MCHC 31.7 L (32-36) g/dL RDW 17.3 H (11.5-14.0) % Plt Count 339 (150-450) x10^3/uL MPV 9.9 (7.5-11.0) fL Segmented Neutrophils 10 L (36.-66.) % Lymphocytes (Manual) 68 H (24-44) % Monocytes (Manual) 22 H (0.0-12.0) % Platelet Estimate NORMAL (NORMAL) RBC Morphology ABNORMAL Poikilocytosis 1+ Anisocytosis 2+ Stomatocytes 1+ Sodium 132 L (137-145) mmol/L Potassium 4.1 (3.5-5.1) mmol/L Chloride 90 L (98-107) mmol/L Carbon Dioxide 33 H (22-30) mmol/L Anion Gap 12.2 (5-15) MEQ/L BUN 10 (9-20) mg/dL Creatinine 0.74 (0.66-1.25) mg/dL Estimated GFR > 60.0 ML/MIN Glucose 162 H (74-106) mg/dL Lactic Acid (0.4-2.0) Calcium 9.1 (8.4-10.2) mg/dL Total Bilirubin 0.80 (0.2-1.3) mg/dL AST 35 (17-59) U/L ALT 22 (0-50) U/L Alkaline Phosphatase 111 (38-126) U/L Serum Total Protein 7.4 (6.3-8.2) g/dL Albumin 4.0 (3.5-5.0) g/dL Urine Color (Yellow) Urine Appearance (Clear) Urine pH (4.6-8.0) Ur Specific [place] (1.005-1.030) Urine Protein (Negative) Urine Glucose (UA) (Negative) mg/dL Urine Ketones (Negative) Urine Blood (Negative) Urine Nitrite (Negative) Urine Bilirubin (Negative) Urine Urobilinogen (0.2) mg/dL Ur Leukocyte Esterase (Negative) U Hyaline Cast (Auto) (0-2) /LPF Urine Microscopic RBC (0-5) /HPF Urine Microscopic WBC (0-5) /HPF Ur Epithelial Cells (None Seen) /HPF Urine Bacteria (None Seen) /HPF Urine Culture Reflexed (NO) Influenza Type A Ag (NEGATIVE) Influenza Type B Ag (NEGATIVE) RSV (PCR) (NEGATIVE) SARS-CoV-2 (PCR) (NEGATIVE) - Progress Progress: improved Progress Note: Patient a 52-year-old male with a history of leukemia presents to our ED for evaluation of shortness of breath hypoxia and cough. Physical exam essentially nonremarkable however patient observed to be coughing excessively in our ED. Test ordered include CBC which reveals a leukocytosis of 18.9. Hemoglobin 8.3. Chemistry reveals a hyponatremia of 132. COVID-negative. Lactic acid negative. Chest x-ray negative. CT chest negative. Patient received albuterol and Solu-Medrol in our ED. Symptoms improved. Per patient's request he received hydrocodone as he states this typically helps his shortness of breath. Normal saline infused. ANC calculated. ANC is 1890. Patient is not neutropenic. No fever. Patient continues to cough and continues to experience shortness of breath with exertion. We will contact patient's oncologist to establish a plan of care. Patient is not on an DENICE inhibitor 03/27/23 02:34 Case discussed with oncology on-call who advises transfer to [facility]. We contacted [facility] they have no beds available. We will admit to our hospital pending bed availability. Hospitalist paged awaiting return call. 03/27/23 03:[address] Gunn our hospitalist who accepts admission to observation. 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 Work-up reveals a leukocytosis of 18.9. Mild hyponatremia. CT a chest negative for PE. Chest x-ray negative. Patient ambulated in our ED and became profoundly short of breath. Patient has been coughing continuously. We suspect atypical pneumonia in our immunocompromise patient. Patient received a dose of azithromycin and Rocephin in our ED. We attempted to transfer patient to [facility] however no beds available. Complexity of problem addressed is moderate acute complicated with systemic manifestations. Critical care time is approximately 2 hours. Patient presented with hypoxia that required immediate action to prevent further deterioration. Patient received nebulizer treatment as well as Solu-Medrol steroid. Complexity of data reviewed and analyzed is extensive. Laboratory test ordered laboratory test reviewed and analyzed. Case discussed with patient's oncologist who advised transfer to [facility] however no beds available. Management further discussed with on-call hospitalist who excepts admission to observation. Patient served as independent historian. Risk of complication and or risk morbidity/mortality patient management is high. Patient required nebulizer treatment and requires hospitalization for further evaluation and treatment. Vital stable Portions of this note were created with voice recognition technology. There may be grammatical, spelling, punctuation or sound alike errors Counseled pt/family regarding: lab results, diagnosis, rad results - Departure Departure Disposition: Observation Clinical Impression: Hypoxia, SOB (shortness of breath), Leukocytosis, Hyponatremia, Cough, History of leukemia, Suspect atypical pneumonia Condition: Stable Critical Care Time: No Referrals: SONIA MILLAN MD [Primary Care Provider] - Follow up/PCP as directed
[2023-03-26] MEDS: DUONEB 0.5-3 MG/3 ml Neb IH SCH (23:25)
[2023-03-27 00:44] LABS: Lymphocytes 68 % (24-44); Monocyte 22 % (0.0-12.0); Neutrophils 10 % (36.-66.); Platelet Estimate NORMAL (NORMAL); Poikilocytosis 1+; Total Cells Counted 100
[2023-03-27 00:45] LABS: ANISOCYTOSIS 2+
[2023-03-27 00:47] LABS: Appearance Clear (Clear); Bacteria None Seen /HPF (None Seen); Bilirubin Negative (Negative); Blood Negative (Negative); Epithelial Cells None Seen /HPF (None Seen); Glucose, Urine Negative (Negative); Ketones Negative (Negative); Leukocyte Esterase Negative (Negative); Nitrite Negative (Negative); Ph 5.5 (4.6-8.0); Protein,Urine Dip 30 (Negative); RBC 0-2 /HPF (0-5); Specific Gravity 1.015 (1.005-1.030); WBC 0-2 /HPF (0-5)
[2023-03-27 00:47] LABS: Stomatocyte 1+
[2023-03-27 00:49] LABS: ADD URINE CULTURE? NO (NO)
--- NOTE | 2023-03-27 01:56 | XRAY ---
CLINICAL HISTORY:Shortness of breath, PE?; COMPARISON:None; TECHNIQUES:Contiguous, multislice, CT angiography of the pulmonary arteries in the axial plane with multiplanar reconstructions; FINDINGS: The main pulmonary segment, right and left main branches show normal diameter and homogeneous contrast enhancement with no evidence of pulmonary embolism or thrombosis. Normal contrast opacification of proximal and visualized distal branches of lobar pulmonary arteries. No pulmonary infarcts or pleural collection. Clear both lung martinez with no evidence of pulmonary infiltration. No evidence of pneumothorax. No suspicious pulmonary mass or cavitary lung lesions. No enlarged hilar or mediastinal lymphadenopathy. The chest wall has no cystic or solid masses. Degenerative changes in the visualized spine. Visualized sections of upper abdomen revealed no related abnormalities. Calcific density in the spleen representing calcified granulomas. IMPRESSION: Unremarkable CT angiography with no definite pulmonary embolism. Electronically Signed by: Silver Dent MD. 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
[2023-03-27] MEDS ORDERED: ROCEPHIN 2 Gm-D5w 50ML BAG** 2 G/50 ML IVPB IV STA (03:08)
[2023-03-27] MEDS ORDERED: Zithromax 500 MG/ 250 ML NaCl Premix 500 MG/250 ML IVPB IV STA (03:08)
[2023-03-27] MEDS ORDERED: HYDROCODONE-ACETAMIN 2.5-108/5 ML SOLUTION PO STA (03:14)
[2023-03-27] MEDS ORDERED: HYDROCODONE-ACETAMIN 2.5-108/5 ML SOLUTION ONE (03:15)
[2023-03-27] MEDS ORDERED: ROCEPHIN 2 Gm-D5w 50ML BAG** 2 G/50 ML IVPB IV ONE (03:16)
[2023-03-27] MEDS ORDERED: MAXIPIME 1 GM** 1 G in Dextrose 5%/Water IV Soln. 100ML PLUS BAG 100 ML IV SCH ×2 (05:15→14:00)
[2023-03-27] MEDS ORDERED: Docusate Sodium 100 MG PO PRN (05:17)
[2023-03-27] MEDS ORDERED: TYLENOL 325 MG PO PRN (05:17)
[2023-03-27] MEDS ORDERED: MILK OF MAGNESIA 30 ML PO PRN (05:17)
[2023-03-27] MEDS ORDERED: NORCO 5/325 MG PO PRN (05:19)
[2023-03-27] MEDS ORDERED: xanAX 0.25 MG PO PRN (05:19)
[2023-03-27] MEDS ORDERED: Robitussin-Dm Syrup PO PRN (05:20)
--- NOTE | 2023-03-27 05:28 | PCM.HP ---
History of Present Illness - Chief Complaint Chief Complaint: History of leukemia, hypoxia, shortness of breath Date: 03/27/23 History of Present Illness: This is a 52-year-old male admitted for hypoxia. He has past medical history of stage IV Lymphoma has been receiving chemo but currently is held due to immunosuppression, chart diagnosis of COPD/asthma who presented to the ED for increasing shortness of breath and cough productive of thick green sputum. He reports that he has been hospitalized for pneumonia, COVID, influenza multiple sent times since December and is on 2 to 3 L of oxygen at home. He reports testing positive for COVID 1 week ago. On arrival he was afebrile, tachycardic 113, blood pressure 134/77. Labs are significant for WBC 18, hemoglobin 8, platelets 339, sodium 132, creatinine 1.74, UA negative for UTI, flu, RSV, COVID-negative. Chest x-ray and CT angiogram both negative for acute pathology. In the ED he was given DuoNebs, Solu-Medrol 125, ceftriaxone, azithromycin. - Review of Systems Constitutional: Fatigue Eyes: No Symptoms Ears, Nose, & Throat: No Symptoms Respiratory: Cough, Short Of Breath Cardiac: No Symptoms Abdominal/Gastrointestinal: No Symptoms Genitourinary Symptoms: No Symptoms Musculoskeletal: No Symptoms Skin: No Symptoms Neurological: No Symptoms Psychological: No Symptoms Endocrine: No Symptoms Medications & Allergies Home Medications: Home Medication List Albuterol Sulfate [Albuterol Sulfate Hfa] 2 puff PO Q6H PRN PRN 12/02/22 [History Confirmed 03/27/23] Albuterol/Ipratropium 3ml Neb* [DUONEB 0.5-3 MG/3 ml Neb] 1 vial NEB QID 12/02/22 [History Confirmed 03/27/23] Budesonide/Formoterol Fumarate [Budesonide-Formoterol 80-4.5] 2 puff PO BID 12/02/22 [History Confirmed 03/27/23] Escitalopram Oxalate [Lexapro] 10 mg PO QAM #30 tablet 12/05/22 [Rx Confirmed 03/27/23] Allergies/Adverse Reactions: Allergies Allergy/AdvReac Type Severity Reaction Status Date / Time No Known Drug Allergies Allergy Verified 03/26/23 20:53 - Past Medical History Past Medical History: Yes Neurological History: No Pertinent History ENT History: No Pertinent History Cardiac History: No Pertinent History Respiratory History: Bronchitis, COPD, Pneumonia Endocrine Medical History: Diabetes Type II Musculoskelatal History: No Pertinent History GI Medical History: Hernia History: No Pertinent History Pyscho-Social History: Anxiety, Depression Male Reproductive Disorders: No Pertinent History Comment: HERNIA, ANXIETY, CLL, COVID IN OCT 2022, STAGE IV LYMPHOMA. FORMER SMOKER - Past Surgical History Past Surgical History: Yes Neuro Surgical History: No Pertinent History Cardiac History: No Pertinent History Respiratory Surgery: No Pertinent History GI Surgical History: Hernia Repair Genitourinary Surgical Hx: No Pertinent History Musculskeletal Surgical Hx: Other Male Surgical History: Prostate Surgery Other Surgical History: carpal tunnel surgery, right elbow, tumor removed to left side of neck. - Social History Smoking Status: Former smoker Exposure to second hand smoke: Yes Alcohol: None Drug Use: none - Physical Exam Vital Signs: Vital Signs - 24 hr Temp Pulse Resp BP Pulse Ox 03/27/23 04:16 98.6 F 113 H 24 134/77 91 L 03/27/23 03:41 97 03/27/23 03:21 112 H 21 138/88 97 03/27/23 02:00 111 H 24 157/86 96 03/27/23 01:00 114 H 22 135/84 92 L 03/27/23 00:35 118 H 22 144/88 90 L 03/26/23 23:28 119 H 27 H 96 03/26/23 23:00 120 H 148/94 95 03/26/23 22:00 117 H 28 H 130/78 97 03/26/23 21:59 121 H 28 H 158/96 93 L 03/26/23 21:05 120 H 22 98 03/26/23 20:48 97.8 F 125 H 34 H 161/106 94 L General Appearance: no apparent distress, anxiety Neurologic Exam: alert, oriented x 3 Eye Exam: PERRL/EOMI Ears, Nose, Throat Exam: normal ENT inspection Neck Exam: normal inspection Respiratory Exam: accessory muscle use, wheezing Cardiovascular Exam: regular rate/rhythm, normal heart sounds Gastrointestinal/Abdomen Exam: soft, normal bowel sounds Extremity Exam: normal inspection, normal range of motion Skin Exam: normal color, warm, dry Results - Labs Lab/Micro Results: Lab Results-Last 24 Hours 03/26/23 03/26/23 03/26/23 Range/Units 21:00 21:00 21:48 WBC 18.9 H (4.0-10.5) x10^3/uL RBC 2.92 L (4.1-5.6) x10^6/uL Hgb 8.3 L (12.5-18.0) g/dL Hct 26.2 L (42-50) % MCV 89.7 (78-100) fL MCH 28.4 (26-32) pg MCHC 31.7 L (32-36) g/dL RDW 17.3 H (11.5-14.0) % Plt Count 339 (150-450) x10^3/uL MPV 9.9 (7.5-11.0) fL Segmented Neutrophils 10 L (36.-66.) % Lymphocytes (Manual) 68 H (24-44) % Monocytes (Manual) 22 H (0.0-12.0) % Platelet Estimate NORMAL (NORMAL) RBC Morphology ABNORMAL Poikilocytosis 1+ Anisocytosis 2+ Stomatocytes 1+ Sodium 132 L (137-145) mmol/L Potassium 4.1 (3.5-5.1) mmol/L Chloride 90 L (98-107) mmol/L Carbon Dioxide 33 H (22-30) mmol/L Anion Gap 12.2 (5-15) MEQ/L BUN 10 (9-20) mg/dL Creatinine 0.74 (0.66-1.25) mg/dL Estimated GFR > 60.0 ML/MIN Glucose 162 H (74-106) mg/dL Lactic Acid (0.4-2.0) Calcium 9.1 (8.4-10.2) mg/dL Total Bilirubin 0.80 (0.2-1.3) mg/dL AST 35 (17-59) U/L ALT 22 (0-50) U/L Alkaline Phosphatase 111 (38-126) U/L Serum Total Protein 7.4 (6.3-8.2) g/dL Albumin 4.0 (3.5-5.0) g/dL Urine Color (Yellow) Urine Appearance (Clear) Urine pH (4.6-8.0) Ur Specific Baldwin (1.005-1.030) Urine Protein (Negative) Urine Glucose (UA) (Negative) mg/dL Urine Ketones (Negative) Urine Blood (Negative) Urine Nitrite (Negative) Urine Bilirubin (Negative) Urine Urobilinogen (0.2) mg/dL Ur Leukocyte Esterase (Negative) U Hyaline Cast (Auto) (0-2) /LPF Urine Microscopic RBC (0-5) /HPF Urine Microscopic WBC (0-5) /HPF Ur Epithelial Cells (None Seen) /HPF Urine Bacteria (None Seen) /HPF Urine Culture Reflexed (NO) Influenza Type A Ag NEGATIVE (NEGATIVE) Influenza Type B Ag NEGATIVE (NEGATIVE) RSV (PCR) NEGATIVE (NEGATIVE) SARS-CoV-2 (PCR) NEGATIVE (NEGATIVE) 03/26/23 03/27/23 Range/Units 22:10 00:21 WBC (4.0-10.5) x10^3/uL RBC (4.1-5.6) x10^6/uL Hgb (12.5-18.0) g/dL Hct (42-50) % MCV (78-100) fL MCH (26-32) pg MCHC (32-36) g/dL RDW (11.5-14.0) % Plt Count (150-450) x10^3/uL MPV (7.5-11.0) fL Segmented Neutrophils (36.-66.) % Lymphocytes (Manual) (24-44) % Monocytes (Manual) (0.0-12.0) % Platelet Estimate (NORMAL) RBC Morphology Poikilocytosis Anisocytosis Stomatocytes Sodium (137-145) mmol/L Potassium (3.5-5.1) mmol/L Chloride (98-107) mmol/L Carbon Dioxide (22-30) mmol/L Anion Gap (5-15) MEQ/L BUN (9-20) mg/dL Creatinine (0.66-1.25) mg/dL Estimated GFR ML/MIN Glucose (74-106) mg/dL Lactic Acid 0.9 (0.4-2.0) Calcium (8.4-10.2) mg/dL Total Bilirubin (0.2-1.3) mg/dL AST (17-59) U/L ALT (0-50) U/L Alkaline Phosphatase (38-126) U/L Serum Total Protein (6.3-8.2) g/dL Albumin (3.5-5.0) g/dL Urine Color Yellow (Yellow) Urine Appearance Clear (Clear) Urine pH 5.5 (4.6-8.0) Ur Specific Baldwin 1.015 (1.005-1.030) Urine Protein 30 (Negative) Urine Glucose (UA) Negative (Negative) mg/dL Urine Ketones Negative (Negative) Urine Blood Negative (Negative) Urine Nitrite Negative (Negative) Urine Bilirubin Negative (Negative) Urine Urobilinogen 1.0 A (0.2) mg/dL Ur Leukocyte Esterase Negative (Negative) U Hyaline Cast (Auto) 3-5 A (0-2) /LPF Urine Microscopic RBC 0-2 (0-5) /HPF Urine Microscopic WBC 0-2 (0-5) /HPF Ur Epithelial Cells None Seen (None Seen) /HPF Urine Bacteria None Seen (None Seen) /HPF Urine Culture Reflexed NO (NO) Influenza Type A Ag (NEGATIVE) Influenza Type B Ag (NEGATIVE) RSV (PCR) (NEGATIVE) SARS-CoV-2 (PCR) (NEGATIVE) - Radiology Impressions Radiology Exams & Impressions: Radiology Procedures Category Date Time Status CHEST 1 VIEW (PORTABLE) Stat Exams 03/26/23 21:32 Taken CHEST WITH CONTRAST [CT] Stat Exams 03/26/23 22:49 Completed Assessment/Plan (1) Hypoxia Current Visit: Yes Status: Acute Code(s): R09.02 - HYPOXEMIA (2) Bronchitis Current Visit: Yes Status: Acute Code(s): J40 - BRONCHITIS, NOT SPECIFIED ACUTE OR CHRONIC (3) COPD exacerbation Current Visit: Yes Status: Acute Assessment & Plan: ASSESSMENT #Acute asthma versus COPD exacerbation #Bronchitis #History of stage IV lymphoma chemotherapy on hold #Chronic hypoxia #Recent COVID infection status post Paxlovid PLAN -Cefepime and Levaquin -Obtain sputum culture -Solu-Medrol -DuoNebs -Supplemental oxygen to maintain saturation 92% -On transfer list for [facility] per his oncologist request that was initiated in the ED. FEN: PO diet PPX: Lovenox Entire encounter performed via telemedicine Code(s): J44.1 - CHRONIC OBSTRUCTIVE PULMONARY DISEASE W (ACUTE) EXACERBATION Telemedicine Encounter - Telemedicine Encounter Telemedicine Encounter: The entirety of this encounter was performed via Telemedicine"
[2023-03-27] MEDS: DUONEB 0.5-3 MG/3 ml Neb IH SCH ×3 (05:41→10:17)
[2023-03-27] MEDS ORDERED: PATEINT INSURANCE PROVIDED MED PO PRN (05:44)
[2023-03-27] MEDS ORDERED: solu-MEDROL 40 MG, Sterile H2O 10 ml 1 ML IV SCH ×2 (06:00)
[2023-03-27] MEDS ORDERED: solu-MEDROL ONE (06:04)
[2023-03-27] MEDS ORDERED: MAXIPIME 1 GM ONE (06:18)
[2023-03-27] MEDS ORDERED: D5w 100ML Mini Bag 100 ML 100 ML IV ONE (06:21)
[2023-03-27] MEDS ORDERED: PATIENT OWN MEDICATION IH SCH (07:00)
[2023-03-27] MEDS ORDERED: PATIENT OWN MEDICATION IH PRN (07:14)
--- NOTE | 2023-03-27 08:36 | XRAY ---
Indication: Cough. Pneumonia. Comparison: March 15, 2023 Portable chest remains hyperinflated and is now clear. Heart not enlarged again with left Port-A-Cath. No new/acute abnormalities.
[2023-03-27] MEDS ORDERED: PATEINT INSURANCE PROVIDED MED PO SCH (10:00)
[2023-03-27] MEDS ORDERED: DUONEB 0.5-3 MG/3 ml Neb IH SCH (10:00)
[2023-03-27] MEDS ORDERED: ENOXAPARIN SODIUM SQ SCH (10:00)
[2023-03-27] MEDS ORDERED: Lexapro PO SCH (10:00)
[2023-03-27] MEDS ORDERED: LEVOFLOXACIN 750MG/150ML D5W 750 MG/150 ML BAG IV SCH (10:00)
[2023-03-27] MEDS ORDERED: solu-MEDROL 60 MG, Sterile H2O 10 ml 2 ML IV SCH ×2 (12:00)
[2023-03-27 12:08] VITALS: BP 118/67; PULSE 92; O2SAT 93
== END 2023-03-27 13:48 | disposition home or self-care (01) ==
LOC: ED 20:48 → MED SURG 03-27 03:55
PROVIDERS: ADMIT Internal Medicine; ATTEND Family Medicine
DX: R09.02 Hypoxemia (principal); J40 Bronchitis, not specified as acute or chronic; J44.1 Chronic obstructive pulmonary disease with (acute) exacerbation; E11.9 Type 2 diabetes mellitus without complications; Z79.899 Other long term (current) drug therapy; Z20.828 Contact with and (suspected) exposure to other viral communicable diseases; Z99.81 Dependence on supplemental oxygen; Z85.6 Personal history of leukemia; Z86.16 Personal history of COVID-19
CPT/HCPCS: 0241U; 36000; 36415; 71045; 71260; 80053; 81001; 83605; 85025; 87040; 87641; 93041; 94640; 94760; 94762; 96374; 93268; 99285; J0456; J0692; J0696; J1650; J1956; J2920; J2930; A9270-GY; G0378